=== PATIENT | male | born 1945 | race Caucasian/White ===

== ENCOUNTER → 2021-11-18 14:59 | Outpatient (BNVA) | payer MEDICARE, MEDICAID, SELFPAY | PROVIDERS: PCP Internal Medicine; Visit Provider Psychiatry & Neurology Neurology | DX: G47.10 Hypersomnia, unspecified (principal); R29.818 Other symptoms and signs involving the nervous system; I65.1 Occlusion and stenosis of basilar artery; Z79.01 Long term (current) use of anticoagulants; Z79.02 Long term (current) use of antithrombotics/antiplatelets | CPT/HCPCS: 99212 ==

== ENCOUNTER → 2022-11-17 15:16 | Outpatient (BNVA) | payer MEDICARE, MEDICAID, SELFPAY | PROVIDERS: PCP Internal Medicine; Visit Provider Psychiatry & Neurology Neurology | DX: G47.10 Hypersomnia, unspecified (principal); R29.818 Other symptoms and signs involving the nervous system; I48.91 Unspecified atrial fibrillation; E11.40 Type 2 diabetes mellitus with diabetic neuropathy, unspecified; Z79.01 Long term (current) use of anticoagulants | CPT/HCPCS: 99212 ==

== ENCOUNTER 2024-07-23 11:32 | Outpatient (AMB) | payer MEDICARE, MEDICAID, SELFPAY ==
--- NOTE | 2024-07-23 11:39 | A.OFFVIS_ITS ---
Vital Signs 07/23/24 11:41 Height 5 ft 9 in Weight 226 lb BMI 33.4 BP 132/68 Blood Pressure Location Rt brachial Position Sitting Pulse 55 Pulse Source Pulse Oximeter Pulse Oximetry (%) 97 Oxygen Delivery Method Room Air Intake Visit Reasons: Follow Up Intake Note: Patient presents for follow up hypersomnia Allergies aspirin Allergy (Mild, Verified 07/23/24 11:42) Hives codeine Allergy (Mild, Verified 07/23/24 11:42) Rash morphine Allergy (Mild, Verified 07/23/24 11:42) Rash oxycodone Allergy (Mild, Verified 07/23/24 11:42) Rash HPI Comments Details: 78y/o male comes for neurological eval . On 07/11/2024 he had a fall and was taken to [facility] . He was in a wheelchair van and the chair fell backwards . Patient struck his head . No LOC CT head showed 10X9 mm focal subarachnoid hemorrhage in the boby sylvian fissure and trace SAH in inf frontal lobe Plavix and Eliquis was stopped - for 4 weeks No new neurological concerns Previous history-He presented ER on 02/2021 with right facial droop and slurred speech after a nap at his senior care. patient has h/o diabetes and in ER found to be hypoglycemic. As per notes patient did not eat that day due to fatigue but had his diabetic medications.His Blood glucose was 59 adn BP 185/78 The speech and facial droop was transient and not seen during the ER physicians exam . he had teleneuro consult at that time and was concluded that it was related to hypoglycemia. 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 [facility] Medical History (Updated 07/23/24 @ 12:13 by Ivon Craig MD) SAH (subarachnoid hemorrhage) Arthritis Systolic dysfunction Diabetic neuropathy Hyperlipidemia HTN (hypertension) Diabetes Depression with suicidal ideation Carpal tunnel syndrome Atrial fibrillation Cataract Cataract Surgical History Hx of colonoscopy History of ankle surgery Hx of hernia repair Hx of hernia repair Hx of hernia repair Hx of knee surgery History of knee replacement Social History Household Members: Other Alcohol intake: never Patient Tobacco Use Status: Never used Tobacco Physical Exam Vital Signs: Last Vital Signs Pulse 55 07/23/24 11:41 BP 132/68 07/23/24 11:41 Pulse Ox 97 07/23/24 11:41 Oxygen Delivery Method Room Air 07/23/24 11:41 BMI result Body Mass Index 33.4 Const General: cooperative, healthy appearing and comfortable Nutritional Appearance: obese Orientation/consciousness: oriented to person and oriented to place Eyes Pupils: Equal, round and reactive pupils present Neuro General: oriented to person, oriented to place, moves all extremities and no focal motor deficits Cranial nerves: Yes Equal, round and reactive pupils present, Yes Bilaterally intact EOM present, Yes Normal facial strength present and Yes Midline tongue present Coordination: [id number] test normal Assessment & Plan Assessment & Plan (1) SAH (subarachnoid hemorrhage): Comment: fall on 07/11/2024 - Plavix and Eliquis on hold for 4 weeks Code(s): I60.9 - Nontraumatic subarachnoid hemorrhage, unspecified Category: Medical (2) Transient neurologic deficit: Comment: Likely related to hypoglycemia in Feb 2021 . Code(s): R29.818 - Other symptoms and signs involving the nervous system Category: Medical Plan Hold Eliquis and Plavix until repeat CT in 2 weeks I will schedule for a repeat CT on 08/04 F/u with cardiology No evidence of tardive dyskinesia F/u as needed Orders: Orders CT head/brain wo IV con 2 Weeks I60.9 - Nontraumatic subarachnoid hemorrhage, unspecified Coding Level of Care Code Est Pt Level 4 (34992) Complex EM visit Add On G2211 Diagnoses SAH (subarachnoid hemorrhage) I60.9 Transient neurologic deficit R29.818
[2024-07-23 11:41] VITALS: BP 132/68; PULSE 55; O2SAT 97; BMI 33.4
--- OUTSIDE RECORDS SUMMARY | 2024-07-23 13:44 | XMS_ITS | Clinical Summary ---
Author Organization [facility] Address [address] [place] [address] Care Team Providers Care Dispensing Optician Apprentice Name Role Phone Petey Alicea DO Primary Care Provider [phone] Allergies Active Allergy Reactions Criticality Noted Date Comments Aspirin 04/09/2021 Codeine 04/09/2021 Morphine 04/09/2021 Oxycodone-Acetaminophen 04/09/2021 Penicillins 04/09/2021 Tetracycline 04/09/2021 Medications Medication Sig Dispensed Refills Start Date End Date Status Acetaminophen ([facility] Acetaminophen) 325 MG CAPS Take 2 capsules by mouth. 0 02/10/2021 Active DULoxetine (CYMBALTA) DR capsule 60 mg Take 1 capsule (60 mg total) by mouth daily. 0 02/10/2021 Active insulin aspart (NovoLOG) injection 100 units/mL Inject under the skin. 0 02/10/2021 Active risperiDONE (RisperDAL) 1 MG tablet Take 3 tablets (3 mg total) by mouth every night at bedtime. 0 02/24/2021 Active amLODIPine (NORVASC) tablet 10 mg 0 10/15/2021 Active gabapentin (NEURONTIN) 400 MG capsule 0 10/16/2021 Active Levemir 100 UNIT/ML injection 0 02/08/2022 Active NovoLOG FLEXPEN 100 UNIT/ML injection 0 01/11/2022 Active B Complex Vitamins (VITAMIN B COMPLEX PO) Take by mouth. 0 Active ferrous sulfate 325 (65 FE) MG tablet Take 1 tablet (325 mg total) by mouth every morning with breakfast. 0 Active Active Problems No known active problems Social History Tobacco Use Types Packs/Day Years Used Date Smoking Tobacco: Former Cigarettes Smokeless Tobacco: Never Tobacco Cessation:Counseling Given: Not Answered Alcohol Use Standard Drinks/Week Comments Not Currently 0 (1 standard drink = 0.6 oz pur e alcohol) Sex and Gender Information Value Date Recorded Sex Assigned at Not on file Gender Identity Not on file Sexual Orientation Not on file Job Start Date Occupation Industry Not on file Not on file Not on file Last Filed Vital Signs Vital Sign Reading Time Taken Comments Blood Pressure 118/53 07/18/2023 2:37 PM EST Pulse 60 07/18/2023 2:37 PM EST Temperature 37.2 ??C (99 ??F) 07/18/2023 2:37 PM EST Respiratory Rate - - Oxygen Saturation 98% 07/18/2023 2:37 PM EST Inhaled Oxygen Concentration - - Weight 116.1 kg (256 lb) 07/13/2022 2:58 PM EST Height 177.8 cm (5' 10 ) 07/13/2022 2:58 PM EST Body Mass Index 36.73 07/13/2022 2:58 PM EST Plan of Treatment Health Maintenance Due Date Last Done Comments Hepatitis C Screening 1945 COVID-19 Vaccine (#1) 05/18/1945 Depression Screening 1956 BMI Counseling 1962 Preventative Health Evaluation 1962 Shingrix-Zoster Vaccine (1 o f 2) 1994 DTap / Tdap / Td (1 - Tdap) 04/13/2005 04/12/2005 Fall Risk Assessment 2009 RSV Adult > 60+ Yrs or (1 - 1-dose 75+ series) 11/17/2019 Pneumococcal Vaccine (3 of 3 - PPSV23 or PCV20) 01/03/2021 01/04/2016, 04/12/2005 Influenza Vaccine (#1) 2024 03/17/2016 Hepatitis B Vaccines Aged Out No long er eligible based on patient's age to complete this topic RSV Ped < 20 months Aged Out No longe r eligible based on patient's age to complete this topic Care Teams Dispensing Optician Apprentice Relationship Specialty Start Date End Date Petey Alicea DO [address] [place] [address] [phone] PCP - General Internal Medicine 06/30/21
--- OUTSIDE RECORDS SUMMARY | 2024-07-23 13:44 | XMS_ITS | Encounter Summary ---
Author Organization [facility] Address [address] [place] [address] Care Team Providers Care Director Of Casework Department Name Role Phone Petey Alicea DO Primary Care Provider [phone] Reason for Visit * Reason Comments Follow-up Right Hand Pain / Nu mbness Encounter Details Date Type Department Care Team (Late st Contact Info) Description 07/06/2024 1:00 PM EST Office Visit Orthopedic Surgery - [place] 250 [address] [facility] [address] [place] [phone] Nima Zamora MD 175 [facility] [address] [place] [address] Cubital tunnel syndrome on left (Primary Dx); Carpal tunnel syndrome of left wrist Social History Tobacco Use Types Packs/Day Years Used Date Smoking Tobacco: Former Cigarettes Smokeless Tobacco: Never Alcohol Use Standard Drinks/Week Comments Not Currently 0 (1 standard drink = 0.6 oz pur e alcohol) Sex and Gender Information Value Date Recorded Sex Assigned at Not on file Legal Sex Male 12:14 PM EST Gender Identity Not on file Sexual Orientation Not on file documented as of this encounter Last Filed Vital Signs Vital Sign Reading Time Taken Comments Blood Pressure - - Pulse - - Temperature - - Respiratory Rate - - Oxygen Saturation - - Inhaled Oxygen Concentration - - Weight 97.5 kg (214 lb 15.2 oz) 07/06/2024 1:12 PM EST Height 175.3 cm (5' 9.02 ) 07/06/2024 1:12 PM ES T Body Mass Index 31.73 07/06/2024 1:12 PM EST documented in this encounter Progress Notes * Nima Zamora MD - 07/06/2024 1:00 PM EST Date: July 06, 2024 Diagnosis: left cubital tunnel and carpal tunnel syndrome Last seen: 05/04/24 HPI: Julián Sibley is a 78 y.o. male [id number] hard of hearing wheel chair ambulator resident of assisted with past medical history of cognitive impairment, CVA, T2DM presenting for followupregarding his left hand numbness and tingling. He is a poor historian, members of the assisted staff assist today. He has difficulty explaining why he is at the doctor's office today, he does endorse that he has hand numbness. He says this is only in his left hand. He denies pain but says that hehas difficulty using that hand. Patient has to be prompted in the history, although he is pleasant and does follow commands. Objective Pleasant alert and follows command when heard, is very hard of hearing, he is oriented only to person and place does not know the year can say that he is in [place], he is a very poor and variable historian. Focused Exam: Left Upper Extremity Skin intact Reports decreased sensation over the hand diffusely Is able to fire EPL FPL FDP and interossei Palpable radial pulse Able to make full composite fist Imaging: Nerve conduction study ordered by PCP Dr. Alicea obtained 05/21/24 reviewed today independentlyand shows evidence of cubital and carpal tunnel syndrome Ulnar nerve conduction velocity across the elbow is 38.4 m/s Median motor onset latency to APB is 5.81 ms, there is no recordable sensory latency Medical Decision Making (base on 2 out of 3 elements): Problems Addressed: Low- 1 stable chronic illness Tests Ordered and/or Reviewed: Moderate-Independent interpretation of a diagnostic testing or treatment (not separately reported): nerve conduction study obtained 05/21/24 Risk Level: Moderate risk: counseling regarding moderate risk procedure Assessment: Julián Sibley presents with left hand numbness and tingling as well as nerve conduction studies that confirm carpal tunnel and cubital tunnel syndrome. Unfortunately I have concerns regarding patient's ability to understand risk and benefits of surgery. He is low demand and has significant medical risks which would make him a poor operative candidate. He is a resident of a assisted and demonstrates cognitive impairment and is alert and oriented only to person and place today. We relied on the member of his assisted today to assist in most of the history. Per her report he does have a healthcare proxy but does not have anyone with a power of guardianship. He still is responsible for his own decision making. We discussed risks and benefits of operative intervention, however patient was not able to clearly voice understanding of these risksand benefits, due to his age diabetic status and cognitive impairment not optimistic that surgical treatment would meaningfully increase his quality of life. We discussed that carpal tunnel release and the patient his age with diabetes may prevent progression of his numbness but is not likely to return normal sensation. He does not appear to be uncomfortable and per the assisted staff only complains of numbness not pain in his hands. We reviewed the risks and benefits of cubital tunnel decompression, unfortunately this procedure requires sedation and may not meaningfully change his numbness in his hands. We discussed that operative treatment for carpal tunnel is much lower risk and can be performed with local anesthesia, however this would require him to be able to hear and follow commands well whichhe has some difficulty with today in clinic. We discussed that if he was having pain we could consider a corticosteroid injection which would belikely to improve his symptoms as well as be predictive of his response to surgery, again this would not likely reverse his numbness. Patient declined a corticosteroid injection today. Plan: Left hand numbness and tingling - Will continue with nonoperative treatment and observation - May return for reevaluation or corticosteroid injection as needed Nima Zamora MD documented in this encounter Plan of Treatment Upcoming Encounters Date Type Department Care Team (Late st Contact Info) Description 07/30/2024 2:40 PM EDT Office Visit Gastroenterology - [place] 175 [facility] [address] [facility] [address] [place] [phone] Demetrio Espinoza PA [address] [facility] [address] [place] [address] 09/20/2024 4:20 PM EDT Office Visit Endocrinology - [address] [phone] Jing Corley PA [address] [place] [address] 10/16/2024 9:30 AM EDT Office Visit Orthopedic Surgery - [place] [address] [phone] Cameron Gannon, JF 175 [facility] [address] [place] [address] 10/25/2024 3:30 PM EDT Office Visit [facility] - [facility] 154 300 [facility] [address] [place] [phone] Baron Johnson MD 300 [facility] [address] [place] [address] documented as of this encounter Visit Diagnoses Diagnosis Cubital tunnel syndrome on left- Primary Carpal tunnel syndrome of left wrist documented in this encounter Care Teams Director Of Casework Department Relationship Specialty Start Date End Date Petey Alicea DO [address] [place] [phone] PCP - General Internal Medicine 07/18/20 documented as of this encounter
--- OUTSIDE RECORDS SUMMARY | 2024-07-23 13:44 | XMS_ITS | Encounter Summary ---
Author Organization [facility] Address [address] [place] [address] Care Team Providers Care Forestry Contractor Name Role Phone Petey Alicea Primary Care Provider [phone] Encounter Details Date Type Department Care Team (Late Contact Info) Description 05/11/2024 Lab Requisition [facility] - Main Lab 299 [facility] [place] [address] Maxx Aragon PA [address] [facility] [address] [place] [phone] Benign essential microscopic hematuria Social History Tobacco Use Types Packs/Day Years [...] on file documented as of this encounter Plan of Treatment Upcoming Encounters Date Type Department Care Team (Late Contact Info) Description 07/30/2024 2:40 PM EDT Office Visit Gastroenterology - [place] 175 [facility] 175 [facility] [address] [place] [address] Demetrio Espinoza PA 175 [facility] [address] [place], [place] [phone] 09/20/2024 4:20 PM EDT Office Visit Endocrinology [address] [phone] Jing Corley PA [address] [place] [address] 10/16/2024 9:30 AM EDT Office Visit Orthopedic Surgery - [place] [address] [facility] [address] [place] [phone] Cameron Gannon DPM [address] [facility] [address] [place] [address] 10/25/2024 3:30 PM EDT [facility] - [facility] [address] 300 [facility] 154 [place] [phone] Baron Johnson MD 300 [facility] [address] [place] [address] documented as of this encounter Procedures Procedure Name Priority Date/Time Associated Diagnosis Comments AP OUTSIDE CONSULT Routine 05/04/2024 12 :00 AM EST Benign essential microscopic hematuria documented in this encounter Results * Anatomic pathology outside consult (05/04/2024 12:00 AM EST) Final Diagnosis Urine, Voided ([id number]): Negative for high grade urothelial carcinoma. 05/28/2024 9:02 AM [facility] Clinical Information [id number] Cytology w/Reflex UroVysion (AUC/SHGUC) 05/28/2024 9:02 AM [facility] Gross Description A. Urine, Voided, : [id number] Received 1 TP (CYTO) with Reflex Fish if Atypical/Susp 05/28/2024 9:02 AM [facility] Disclaimer Unless otherwise specified, all tissue is 10% NB formalin fixed and paraffin embedded. Technical pathology services provided by [facility] at [address], [place] [address] (CLIA #[id number]/S tennille Demarco MD, Manager Mental Health) 05/28/2024 9:02 AM EST [facility] Tissue Urine specimen from urethra / Unknown 05/04/2024 05/11/2024 10:04 AM EST us [facility] PATHOLOGY ORDERAB LES Final Result [facility] [address] [place] [address], documented in this encounter Visit Diagnoses Diagnosis Benign essential microscopic hematuria documented in this encounter Care Teams Forestry Contractor Relationship Specialty Start Date End Date Petey Alicea DO [address] [place] [phone] PCP - General Internal Medicine 07/18/20 documented as of this encounter
--- OUTSIDE RECORDS SUMMARY | 2024-07-23 13:44 | XMS_ITS | Encounter Summary ---
Author Organization [facility] Address [address] [place] [address] Care Team Providers Care Roller Painter Name Role Phone Petey Alicea DO Primary Care Provider [phone] Reason for Visit * Reason Comments Follow-up Diabetic Neuropathy Encounter Details Date Type Department Care Team ([facility] st Contact Info) Description 07/16/2024 1:45 PM EST Office Visit Orthopedic Surgery - [place] [id number] [phone] Cameron Gannon DPM [address] [address] Controlled type 2 diabetes with neuropathy (CMS/HCC) (Primary Dx); PVD (peripheral vascular disease) (CMS/HCC); Arthritis of both feet; Hammertoes of both feet; Dermatophytosis, nail Social History Tobacco Use Types Packs/Day Years [...] on file documented as of this encounter Progress Notes * Cameron Gannon DPM - 07/16/2024 1:45 PM EST Referring MD: leesa Last PCP visit: 06/22/2024 IDENTIFIER: @TITLE@ Toñito is a 78 y.o. year old male who presents for consultation. CC: Bilateral foot pain HPI: 78-year-old male with diabetes returns to office for bilateral foot pain. Patient notes that he is nails continue be thickened and misshapened causing pain close to shoes. Patient is recent sugars 7.8%. Patient notes he gets some tingling numbness within his feet from time to time. Patient is wheelchair- bound. Patient notes he recently had a fall but notes he has had no wounds or clinical signs of infection around the lower extremities. ROS: GENERAL: Pt denies nausea, fever, vomiting, chills, or shortness of breath. Pt in NAD. CARDIOLOGY: pt denies chest pain, palpitations LUNGS: pt denies shortness of breath MUSCULOSKELETAL: See HPI, otherwise no joint pain or swelling, back pain, or muscle pain. SKIN: see HPI, otherwise no lesions, rash or itching NEURO: No persistent headache, weakness or numbness The remainder of the review of systems is noncontributory PAST MEDICAL HISTORY: Patient Active Problem List Diagnosis Anemia Atrial fibrillation ([facility]) Bipolar 1 disorder ([facility]) Chest pain COPD (chronic obstructive pulmonary disease) ([facility]) CVA (cerebral vascular accident) ([facility]) Dementia ([facility]) Depression Diabetes mellitus, type 2 ([facility]) Diabetic peripheral neuropathy ([facility]) Hyperlipidemia Hypertension Moderate left ventricular systolic dysfunction Suicidal ideation Type 2 diabetes mellitus with hyperglycemia, with long-term current use of insulin ([facility]) SOCIAL HISTORY: Social History Tobacco Use Smoking status: Former Current packs/day: 0.50 Types: Cigarettes Smokeless tobacco: Never Substance Use Topics Alcohol use: Not Currently ACTIVE MEDICATIONS: No outpatient medications have been marked as taking for the 07/16/24 encounter (Office Visit) with Cameron Gannon DPM. ALLERGIES: @ALL@ PHYSICAL EXAM: There were no vitals taken for this visit. PODIATRIC EXAMINATION: GENERAL: Patient appears well nourished, with NAD. VASCULAR: Dorsalis pedis pulses are 1/4 bilaterally and Posterior tibial pulses are 0/4 bilaterally. Capillary filling time within normal limits the digits. No pallor on elevation or rubor on dependency. Positive hair growth. No varicosities. Denies rest pain or claudication pain. NEUROLOGICAL: Sharp/dull sensation intact, protective sensation diminished on [place]. Multiple peripheral neuropathies bilaterally ORTHOPEDIC: Good muscle strength 5/5 of all flexors and extensors. Dorsi flexion of ankle ,10 degrees, plantar flexion WNL. No muscle atrophy. No pain on palpation about the ankle joint. The foot on the ankle is malpositioned secondary to ambulatory activity in the immediate postoperative period. Multiple arthritic changes in the midtarsal joint. Multiple rigid contractures digits 2 through 5 DERMATOLOGICAL:.No open lesions or clinical signs of infection. Nails are elongated dystrophic discolored x 10 with subungual debris. Scar tissue over the medial aspect of the right ankle without redness or swelling. BIOMECHANICS: Biomechanics of right lower extremity are limited IMPRESSION: 1. Controlled type 2 diabetes with neuropathy ([facility]) 2. PVD (peripheral vascular disease) ([facility]) 3. Arthritis of both feet 4. Hammertoes of both feet 5. Dermatophytosis, nail PLAN: Pt was seen and examined, history reviewed. Patient educated on the importance of keeping tight glucose control in order to limit chance for ulceration infection in the future Patient was educated on the importance of keeping a wide shoe and supportive insole in order to limit pressure on the bony prominence associated with his arthritic changes Patient was educated on the importance of keeping his leg in a proper position when laying in bed in order to decrease pressure to the lateral compartment of the right leg which had a previous wound. Nail debridement performed to nails 1-5 bilateral as nails were described to be causing pain and difficulty for walking while in shoegear at their previous length. They were debrided in thickness andlength, with no incident. Clinical evidence of mycosis is documented which required active treatment. Patient expressed immediate relief. Patient is to RTC in 9 weeks Cameron Gannon DPM documented in this encounter Plan of Treatment Upcoming Encounters Date Type Department Care Team (Late st Contact Info) Description 07/30/2024 2:40 PM EDT Office Visit Gastroenterology - [place] [address] [facility] [address] [place] [phone] Demetrio Espinoza PA [address] [place] [address] 09/20/2024 4:20 PM EDT Office Visit Endocrinology - [place] [address] [place] [phone] Jing Corley PA [address] [place] [address] 10/16/2024 9:30 AM EDT Office Visit Orthopedic Surgery - [place] [address] [phone] Cameron Gannon DPM 175 [facility] 250 [place] [address] 10/25/2024 3:30 PM EDT Office Visit [facility] - [facility] 154 [address] [facility] 154 [place] [phone] Baron Johnson MD 300 [facility] 154 [place] [address] documented as of this encounter Visit Diagnoses Diagnosis Controlled type 2 diabetes with neuropathy ([facility])- Primary Type II or unspecified type diabetes mellitus with neurological manifestations, not stated as uncontrolled PVD (peripheral vascular disease) ([facility]) Unspecified peripheral vascular disease Arthritis of both feet Hammertoes of both feet Dermatophytosis, nail Dermatophytosis of nail documented in this encounter Care Teams Roller Painter Relationship Specialty Start Date End Date Petey Alicea DO [address] [place] [phone] PCP - General Internal Medicine 07/18/20 documented as of this encounter
--- OUTSIDE RECORDS SUMMARY | 2024-07-23 13:44 | XMS_ITS | Encounter Summary ---
Author Organization [facility] Address [address] [place] [address] Care Team Providers Care Neurological Surgeon Name Role Phone Petey Alicea DO Primary Care Provider [phone] Reason for Visit * Reason Onset Date Comments Medication Problem 07/18/2024 Encounter Details Date Type Department Care Team ([facility] st Contact Info) Description 07/18/2024 Telephone Endocrinology - [place] [address] [place] [address] Jing Corley PA [address] [place], [place] Medication Problem Social History Tobacco Use Types Packs/Day Years [...] on file documented as of this encounter Ordered Prescriptions Prescription Sig Dispense Quantity Refills Last Filled Start Date End Date insulin glargine-yfgn (Semglee,insulin glarg-yfgn,Pen) 100 unit/mL (3 mL) injection Use 45 units once daily in the morning 45 mL 1 07/19/2024 documented in this encounter Progress Notes * Ruth Trimble MA - 07/20/2024 3:23 PM EST [phone] (home) Spoke to Kelin (EC - child welfare social worker) informed and will be faxing a DC Basalglar order for provider to sign. * Doug Martinez - 07/19/2024 4:17 PM EST Patient returned call to Danyell * Danyell Stevens RN - 07/19/2024 3:52 PM EST Called patient, no answer, VM left * JUAN Stokes - 07/19/2024 3:28 PM EST Alternative ordered (Semglee). Dose remains the same. Please inform patient * Sandra Padilla - 07/18/2024 3:08 PM EST Medication Problem: What is the name of the medication patient is having a problem with?: Basaglar What is the problem?: Patient's PCP's office is calling, they received notice from patients insurance they will no longer cover Basaglar , unless he tries and fails two below alternatives: Insulin degludec 100 unit/ML vial or pen, or 200 unit/ML, Insulin glargine YFGN 100 unit/ML pen Who is calling about the problem? : Ingrid from Dr. Alicea's office Is this a NEW medication?: no Who prescribed this medication for the patient? Originally Dr. Alicea, taken over by Jing Corley once establishing care with endo Who is patients PCP?: Petey Alicea, Payor: MEDICARE / Plan: MEDICARE PART A & B / Product Type: Medicare / documented in this encounter Plan of Treatment Upcoming Encounters Date Type Department Care Team (Late st Contact Info) Description 07/30/2024 2:40 PM EDT Office Visit Gastroenterology - [place] [address] 175 [facility] [address] [place] [phone] Demetrio Espinoza PA 175 [facility] [address] [place] [address] 09/20/2024 4:20 PM EDT Office Visit Endocrinology - [place] [address] [place] [address] Jing Corley PA [address] [place] [address] 10/16/2024 9:30 AM EDT Office Visit Orthopedic Surgery - [place] 250 175 [facility] 250 [place] [phone] Cameron Gannon DPM 175 [facility] [address] [place] [address] 10/25/2024 3:30 PM EDT Office Visit [facility] - [facility] 154 300 [facility] 154 [place] [phone] Baron Johnson MD 300 [facility] [address] [place] [address] documented as of this encounter Visit Diagnoses Not on filedocumented in this encounter Discontinued Medications Medication Sig Discontinue Reason Start Date End Da te insulin glargine,hum.rec.anlog (Basaglar KwikPen U-100 Insulin) 100 unit/mL (3 mL) injection pen Use 45 units every morning 07/05/2024 07/19/2024 documented as of this encounter Care Teams Neurological Surgeon Relationship Specialty Start Date End Date Petey Alicea DO [address] [place] [phone] PCP - General Internal Medicine 07/18/20 documented as of this encounter
--- OUTSIDE RECORDS SUMMARY | 2024-07-23 13:44 | XMS_ITS | Clinical Summary ---
Author Organization [facility] [address] [place] [address] Address [address] [place] [address] Phone Care Team Providers Care Endoscopy Technician Name Role Phone Petey Alicea Primary Care Provider [phone] Allergies Active Allergy Reactions Criticality Noted Date Comments Aspirin 04/09/2021 Codeine 04/09/2021 Morphine 04/09/2021 Oxycodone-Acetaminophen 04/09/2021 Percocet Medications acetaminophen (TYLENOL) 325 mg tablet Take 2 Tablets by mouth every 6 hours as needed for Pain (mild to moderate pain) for up to 10 days. 12/03/19 23 Active amLODIPine (NORVASC) 10 mg tablet Take 1 Tablet by mouth daily. Active ascorbic acid, vitamin C, 500 mg capsule Take by mouth at bedtime. Active atorvastatin (LIPITOR) 40 mg tablet Take 1 tablet by mouth at bedtime. Active clopidogreL (PLAVIX) 75 mg tablet Take 75 mg by mouth daily. Active DULoxetine (CYMBALTA) [address] capsule Take 1 capsule by mouth daily. Active apixaban (Eliquis) 5 mg tablet TAKE 1 TABLET BY MOUTH TWICE DAILY. 02/16/20 24 Active ferrous sulfate 325 mg (65 mg elemental iron) tablet Take 1 Tablet by mouth daily. Active gabapentin (NEURONTIN) 100 mg capsule Take 1 Capsule by mouth at bedtime. Active ketorolac (ACULAR) 0.5 % ophthalmic solution 1 Drop 4 times daily. Active loperamide (IMODIUM) 2 mg capsule Take 1 Capsule by mouth 2 times daily as needed for Diarrhea. 12/16/19 24 Active methylcellulos e, laxative, (CitruceL) 500 mg tablet Take 1 Tablet by mouth daily. 03/08/20 24 Active risperiDONE (RisperDAL) 1 mg tablet Take 3 Tablets by mouth at bedtime. Active traZODone (DESYREL) 150 mg tablet Take 1 tablet by mouth at bedtime. Active blood-glucose sensor (FreeStyle Yamila 3 Sensor) device Box = Kit = EA, use one sensor every 14 days. 2 each 3 05/11/20 24 Active loperamide (Imodium A-D) 2 mg tablet Take 1 tablet (2 mg total) by mouth 4 (four) times a day if needed for diarrhea. 60 tablet 11 05/14/20 24 Active insulin aspart (NovoLOG FlexPen) 100 unit/mL (3 mL) injection pen Inject 3-12 Units into the skin 3 times daily. Use three times a day before meals: <100: 0 units, 101-150: 3 units, 151-200: 4 units, 201-250: 5 units, 251-300: 7 units, 301-350: 9 units, 351-400: 10 units, >400: 11 units 06/22/19 25 Active OneTouch Ultra Test test strip To check sugars three times a day E11.9 300 each 3 06/28/19 25 Active blood-glucose meter (OneTouch Ultra2 Meter) misc To check sugars three times a day E11.9 1 kit 06/28/19 25 Active lancets 30 gauge misc To check sugars three times a day E11.9 300 each 3 06/29/19 25 Active carvediloL (COREG) 12.5 mg tablet TAKE 1 TABLET BY MOUTH TWICE DAILY WITH MEALS. 56 tablet 6 07/05/19 25 Active insulin glargine-yfgn (Semglee,insul in glarg-yfgn,Pen ) 100 unit/mL (3 mL) injection Use 45 units once daily in the morning 45 mL 1 07/19/19 25 Active carvediloL (COREG) 12.5 mg tablet TAKE 1 TABLET BY MOUTH TWICE DAILY WITH MEALS. 12/15/19 24 025 Discontinued lancets 30 gauge misc To check sugars three times a day E11.9 300 each 3 06/28/19 25 025 Discontinued(Re order) insulin glargine,hum.r ec.anlog (Basaglar KwikPen U-100 Insulin) 100 unit/mL (3 mL) injection pen Use 45 units every morning 07/05/19 25 025 Discontinued Active Problems Problem Noted Date Diagnosed Date Type 2 diabetes mellitus wit h hyperglycemia, with long-term current use of insulin 03/30/2024 Anemia 06/28/2022 Bipolar 1 disorder 06/28/2022 COPD (chronic obstructive pulmonary disease) 10/2022 CVA (cerebral vascular accident) 06/28/2022 Dementia 06/28/2022 Overview (03/30/2024): In snf Depression 06/28/2022 Suicidal ideation 06/28/2022 Chest pain 06/22/2021 Overview (03/30/2024): Last Assessment & Plan: We will update nuclear stress testing as previously recommended by Dr. Johnson and in light of the patient now having exertional symptoms. Instructed to call 911 or go to the emergency room should the patient begin to experience chest pain or pressure lasting greater than 10 minutes does not resolve with rest. Atrial fibrillation 04/09/2021 Overview (03/30/2024): Last Assessment & Plan: He denies perception of recurrence of arrhythmia. He presents in sinus rhythm today. Patient is anticoagulated on full dose Eliquis as his weight is greater than 80 kg and his age is less than 80. Educated on risks and benefits of continuing with anticoagulation including increased risk for hemorrhage and decreased risk for stroke. Encouraged to seek emergent medical attention should the patient sustain a fall involving a head strike. The patient understands these risks and agrees to continue. Diabetes mellitus, type 2 04/09/2021 Diabetic peripheral neuropathy 04/09/2021 Hyperlipidemia 04/09/2021 Overview (03/30/2024): Last Assessment & Plan: Continue current statin therapy. He will be mindful of his dietary fat intake. Last fasting lipid profile with an LDL of less than 70. Hypertension 04/09/2021 Overview (03/30/2024): Last Assessment & Plan: Well-controlled during today's exam with a reading of 121/60. I have made no changes to his medications. Educated on the importance of diet lifestyle to help further assist in reducing blood pressure. The patient was encouraged to follow low-salt low-fat diet, make purposeful strides towards weight loss, and engage in routine aerobic exercise as tolerated. Moderate left ventricular systolic dysfunction 1 06/09/2020 Overview (03/30/2024): Last Assessment & Plan: Euvolemic upon exam. We will update surveillance echocardiogram in light of worsening fatigue and shortness of breath as reported by snf director. Encounters Date Type Department Care Team Description 07/18/[address] [phone] Jing Corley PA Medication Problem 07/16/2024 1:45 PM EST Office Visit [facility] [address] [phone] Cameron Gannon DPM Controlled type 2 diabetes with neuropathy (CMS/HCC) (Primary Dx); PVD (peripheral vascular disease) (CMS/HCC); Arthritis of both feet; Hammertoes of both feet; Dermatophytosis, nail 07/06/2024 1:00 PM EST Office Visit Orthopedic [facility] [address] [phone] Nima Zamora MD Cubital tunnel syndrome on left (Primary Dx); Carpal tunnel syndrome of left wrist 06/22/2024 4:00 PM EST Office Visit [address] [phone] Jing Corley PA Type 2 diabetes mellitus with hyperglycemia, with long-term current use of insulin (CMS/HCC) (Primary Dx) 05/21/2024 1:30 PM EST - 05/21/2024 11:59 PM EST Hospital Encounter [facility] [address] [place] [phone] Paresthesia of skin Discharge Disposition: Home or Self Care 05/21/2024 Telephone Orthopedic [facility] [address] [phone] Nima Zamora MD 05/14/2024 11:00 AM EST Office Visit Gastroenterology [facility] 175 [facility] 175 [facility] [address] [place] [phone] Demetrio Espinoza PA Passage of loose stools (Primary Dx); Fecal urgency; History of CVA (cerebrovascular accident); Diabetes 1.5, managed as type 2 ([facility]) 05/11/2024 Lab Requisition [facility] - Main Lab 299 [facility] [place] [phone] Maxx Aragon PA Benign essential microscopic hematuria 05/09/2024 Telephone Endocrinology - [address] [phone] Jing Corley PA provider call back 05/04/2024 9:30 AM EST Office Visit Orthopedic [place] [phone] [phone] Nima Zamora MD Numbness and tingling in left hand (Primary Dx) 05/03/2024 2:00 PM EST Office Visit Orthopedic Surgery [place] [phone] [phone] Cameron Gannon DPM Controlled type 2 diabetes with neuropathy ([facility]) (Primary Dx); Hammertoes of both feet; Pressure injury of right ankle, unstageable ([facility]); Arthritis of both feet; PVD (peripheral vascular disease) ([facility]); Dermatophytosis, nail 04/27/2024 10:40 AM EST Office Visit Endocrinology [address] [phone] Jing Corley PA Type 2 diabetes mellitus with hyperglycemia, with long-term current use of insulin ([facility]) (Primary Dx) from Last 3 Months Surgical History Surgery Date Site/Laterality Comments OTHER SURGICAL HISTORY 03/18/2016 PROCEDURE: HISTORY OTHER; COMMENT: incision AND drainage of left foot abcess CATARACT EXTRACTION PROCEDURE: HISTORICAL CATARACT REMOVAL Medical History Medical History Date Comments Carpal tunnel syndrome DX:Carpal tunnel syndrome Depression with suicidal ideation DX:Depression with suicidal ideation Incidental pulmonary nodule DX:I ncidental pulmonary nodule Left pontine stroke (CMS/HCC) DX :Left pontine stroke (HCC) Osteoarthritis DX:Osteoarthriti s CVA (cerebral vascular accident) (CMS/HCC) DX:CVA (cerebral vascular accident) (HCC) Passage of loose stools DX:Passa ge of loose stools Fecal smearing DX:Fecal smearin g Family History Medical History Relation Name Comments Other: Heart disease Mother Other: Heart disease Other Grandmother Stroke Other Grandmother Relation Name Status Comments Mother Other Grandmother Social History Tobacco Use Types Packs/Day Years Used Date Smoking Tobacco: Former Cigarettes Smokeless Tobacco: Never Alcohol Use Standard Drinks/Week Comments Not Currently 0 (1 standard drink = 0.6 oz pur e alcohol) Sex and Gender Information Value Date Recorded Sex Assigned at Not on file Legal Sex Male 12:14 PM EST Gender Identity Not on file Sexual Orientation Not on file Obstetrics History Last Filed Vital Signs Vital Sign Reading Time Taken Comments Blood Pressure 137/78 06/22/2024 4:22 PM EST Pulse 78 06/22/2024 4:22 PM EST Temperature 36.5 ??C (97.7 ??F) 06/22/2024 4:22 PM ES T Respiratory Rate 16 04/27/2024 10:3 9 AM EST Oxygen Saturation 97% 06/22/2024 4:22 PM EST Inhaled Oxygen Concentration - - Weight 97.5 kg (214 lb 15.2 oz) 07/06/2024 1:12 PM EST Height 175.3 cm (5' 9.02 ) 07/06/2024 1:12 PM ES T Body Mass Index 31.73 07/06/2024 1:12 PM EST Plan of Treatment Upcoming Encounters Date Type Department Care Team (Late st Contact Info) Description 07/30/2024 2:40 PM EDT Office Visit Gastroenterology - [place] [address] [facility] [address] [place] [phone] Demetrio Espinoza PA [address] [place] [address] [place] [address] 09/20/2024 4:20 PM EDT Office Visit Endocrinology - [place] [address] [place] [phone] Jing Corley PA [address] [place] [address] 10/16/2024 9:30 AM EDT Office Visit Orthopedic Surgery - [place] [address] [phone] Cameron Gannon DPM 175 [facility] 250 [place] [address] 10/25/2024 3:30 PM EDT Office Visit [facility] 154 300 [facility] 154 [place] [phone] Baron Johnson MD 300 [facility] [address] [place] [address] Health Maintenance Due Date Last Done Comments Diabetes: Annual Foot Exam 1955 Diabetes: Annual Retina Eye Exam 1955 Zoster Vaccines (1 of 2) 1994 DTaP,Tdap,and Td Vaccines (2 - Td or Tdap) 04/12/2015 04/12/2005 RSV Immunization Patients 60+ Years Old (1 - 1-dose 75+ series) 11/17/2019 Pneumococcal Vaccine: 50+ Years (3 of 3 - PCV20 or PCV21) 01/03/2021 01/04/2016, 04/12/2005 Depression Screening 04/30/2022 Falls Risk Assessment 04/30/2022 Hepatitis C Screening 04/30/2022 Medicare Annual Wellness Visit 04/30/2022 Social Influencers of Health Screening 04/30/2022 Diabetes: Annual Urine Albumin-Creatinine Ratio (uACR) 05/08/2022 Diabetes: Blood Sugar Control Test (HGBA1C) 12/24/2024 06/26/2024, 06/11/2024 Diabetes: Annual GFR (Glomerular Filtration Rate) 06/11/2025 06/11/2024 Hypertension/CHF/CAD Annual BMP Blood Test 06/11/2025 06/11/2024 Cholesterol Screening (Lipid Panel) 06/26/2029 06/26/2024 Influenza Vaccine Completed 02/24/2024, , 02/02/2022, Additional history exists COVID-19 Vaccine Completed 03/23/2024, 04/2022, 03/09/2021 HIB Vaccines Aged Out No longer eligi ble based on patient's age to complete this topic HPV Vaccines Aged Out No longer eligi ble based on patient's age to complete this topic Hepatitis A Vaccines Aged Out No long er eligible based on patient's age to complete this topic Hepatitis B Vaccines Aged Out No long er eligible based on patient's age to complete this topic IPV Vaccines Aged Out No longer eligi ble based on patient's age to complete this topic MMR Vaccines Aged Out No longer eligi ble based on patient's age to complete this topic Meningococcal ACWY Vaccine Aged Out N o longer eligible based on patient's age to complete this topic Meningococcal B Vacine Aged Out No lo nger eligible based on patient's age to complete this topic RSV Immunization Patients Under 20 months Aged Out No longer eligible based on patient's age to complete this topic Varicella Vaccines Aged Out No longer eligible based on patient's age to complete this topic Procedures Procedure Name Priority Date/Time Associated Diagnosis Comments THYROID STIMULATING HORMONE Routine 06/26/2024 10:48 AM EST Laboratory tests ordered as part of a complete physical exam (CPE) CVA (cerebral vascular accident) (CMS/[facility]) DM (diabetes mellitus) (CMS/[facility]) HLD (hyperlipidemia) Attn-defct hyperactivity disorder, predom hyperactive type PROSTATE SPECIFIC ANTIGEN SCREEN Routine 06/26/2024 10:48 AM EST Laboratory tests ordered as part of a complete physical exam (CPE) CVA (cerebral vascular accident) (CMS/HCC) DM (diabetes mellitus) (CMS/HCC) HLD (hyperlipidemia) Attn-defct hyperactivity disorder, predom hyperactive type Encounter for screening for malignant neoplasm of prostate CREATINE KINASE Routine 06/26/2024 10:48 AM EST Laboratory tests ordered as part of a complete physical exam (CPE) CVA (cerebral vascular accident) (CMS/HCC) DM (diabetes mellitus) (CMS/HCC) HLD (hyperlipidemia) Attn-defct hyperactivity disorder, predom hyperactive type LIPID PANEL WITH REFLEX TO DIRECT LDL Routine 06/26/2024 10:48 AM EST Laboratory tests ordered as part of a complete physical exam (CPE) CVA (cerebral vascular accident) ([facility]) DM (diabetes mellitus) ([facility]) HLD (hyperlipidemia) Attn-defct hyperactivity disorder, predom hyperactive type HEMOGLOBIN A1C Routine 06/26/2024 10:48 AM EST Type 2 diabetes mellitus with hyperglycemia, with long-term current use of insulin ([facility]) POC GLUCOSE Routine 06/22/2024 4:25 PM EST Type 2 diabetes mellitus with hyperglycemia, with long-term current use of insulin ([facility]) HEMOGLOBIN A1C Routine 06/11/2024 2:41 PM EST Hospital discharge follow-up DM (diabetes mellitus) ([facility]) BASIC METABOLIC PANEL Routine 06/11/2024 2:41 PM EST Hospital discharge follow-up DM (diabetes mellitus) ([facility]) EMG 1 LIMB Routine 05/21/2024 2:16 PM EST Paresthesia of skin XR HAND 3+ VIEWS LEFT Routine 05/04/2024 10:33 AM EST Pain AP OUTSIDE CONSULT Routine 05/04/2024 12 :00 AM EST Benign essential microscopic hematuria from Last 3 Months Results * Prostate specific antigen screen (06/26/2024 10:48 AM EST) PSA 0.91 0.00 - 4.00 ng/mL LAB CHEMISTRY METHOD 06/26/2024 4:44 PM EST [facility] Blood Venous blood specimen / Unknown Venipuncture / Unknown 06/26/2024 10:48 AM EST 06/26/2024 10:48 AM EST Narrative [facility] - 06/26/2024 4:44 PM EST The Siemens Advia Centaur Chemiluminescent Immunoassay is used. Results obtained with different assay methods or kits cannot be used interchangeably. Results cannot be interpreted as absolute evidence of the presence or absence of malignant disease. Christopher Dubose LAB BLOOD ORDERABLES Final Resul t Performing Organization Address City/[facility]/ZIP Co de Phone Number [facility] [address] [place] [address], [place] [phone] * (ABNORMAL) Lipid panel with reflex to direct LDL (06/26/2024 10:48 AM EST) Cholesterol 97 0 - 200 mg/dL LAB CHEMISTRY METHOD 06/26/2024 4:30 PM EST [facility] Triglycerides 153(H) 0 - 150 mg/dL LAB CHEMISTRY METHOD 06/26/2024 4:30 PM EST [facility] HDL 38(L) >=40 mg/dL LAB CHEMISTRY METHOD 06/26/2024 4:30 PM EST [facility] LDL Calculated 28 0 - 100 mg/dL LAB CHEMISTRY METHOD 06/26/2024 4:30 PM EST [facility] VLDL Cholesterol John 30.6 mg/dL LAB CHEMISTRY METHOD 06/26/2024 4:30 PM EST [facility] Non HDL Chol. (LDL+VLDL) 59 <145 mg/dL LAB CHEMISTRY METHOD 06/26/2024 4:30 PM EST [facility] Chol/HDL Ratio 2.6 0.0 - 4.4 LAB CHEMISTRY METHOD 06/26/2024 4:30 PM [facility] Blood Venous blood specimen / Unknown Venipuncture / Unknown 06/26/2024 10:48 AM EST 06/26/2024 10:48 AM EST Christopheryuliya Dubose LAB BLOOD ORDERABLES Final Resul t [facility] [address] [place] [address], * Thyroid stimulating hormone (06/26/2024 10:48 AM EST) Pathologist [facility] TSH 1.48 0.40 - 4.00 mcIU/mL LAB CHEMISTRY METHOD 06/26/2024 4:39 PM EST [facility] Blood Venous blood specimen / Unknown Venipuncture / Unknown 06/26/2024 10:48 AM EST 06/26/2024 10:48 AM EST Christopher Dubose LAB BLOOD ORDERABLES Final Resul t Performing Organization Address [facility] Co de Phone Number [facility] [address] [place] [address], * (ABNORMAL) Hemoglobin A1c (06/26/2024 10:48 AM EST) Only the most recent of2 resultswithin the time period is included. [facility] Hemoglobin A1C 7.8(H) <6.5 % LAB CHEMISTRY METHOD 06/27/2024 10:37 AM EST [facility] Mean Bld Glu Estim. 177 mg/dL LAB CHEMISTRY METHOD 06/27/2024 10:37 AM EST [facility] Blood Venous blood specimen / Unknown Venipuncture / Unknown 06/26/2024 10:48 AM EST 06/26/2024 10:48 AM EST Jing MARTINEZ LAB BLOOD ORDERABLES Final Resul t [facility] [address] [place] [address], * Creatine kinase (06/26/2024 10:48 AM EST) [facility] Total CK 92 22 - 269 unit/L LAB CHEMISTRY METHOD 06/26/2024 4:30 PM EST [facility] Blood Venous blood specimen / Unknown Venipuncture / Unknown 06/26/2024 10:48 AM EST 06/26/2024 10:48 AM EST us Christopher Sedrick LAB BLOOD ORDERABLES Final Resul t [facility] [address] [place] [address], [place] [phone] * (ABNORMAL) POC glucose manually resulted (06/22/2024 4:25 PM EST) Glucose POC 201 mg/dL Comment:non fasting Blood Capillary blood specimen / Unknown 06/22/2024 4:25 PM EST Jing MARTINEZ POINT OF CARE TEST ENTER/EDIT OR DERABLES Final Result * (ABNORMAL) Basic metabolic panel (06/11/2024 2:41 PM EST) [facility] Sodium 139 133 - 145 mmol/L LAB CHEMISTRY METHOD 06/11/2024 7:50 PM [facility] Potassium 3.9 3.5 - 5.5 mmol/L LAB CHEMISTRY METHOD 06/11/2024 7:50 PM [facility] Chloride 104 96 - 110 mmol/L LAB CHEMISTRY METHOD 06/11/2024 7:50 PM [facility] CO2 30 21 - 32 mmol/L LAB CHEMISTRY METHOD 06/11/2024 7:50 PM [facility] Anion Gap 5 3 - 11 LAB CHEMISTRY METHOD 06/11/2024 7:50 PM [facility] Glucose 180(H) 70 - 100 mg/dL LAB CHEMISTRY METHOD 06/11/2024 7:50 PM [facility] BUN 30(H) 5 - 25 mg/dL LAB CHEMISTRY METHOD 06/11/2024 7:50 PM [facility] Creatinine 1.26 0.70 - 1.30 mg/dL LAB CHEMISTRY METHOD 06/11/2024 7:50 PM EST [facility] eGFR 58(L) >=60 mL/min/1. 73m2 LAB CHEMISTRY METHOD 06/11/2024 7:50 PM EST [facility] Comment:Calculation based on the??Chronic Kidney Disease Epidemiology Collaboration (CKD-EPI) equation refit??without adjustment for race. BUN/Creatinine Ratio 23.8 LAB CHEMISTRY METHOD 06/11/2024 7:50 PM EST [facility] Calcium 9.2 8.5 - 10.5 mg/dL LAB CHEMISTRY METHOD 06/11/2024 7:50 PM EST [facility] Blood Venous blood specimen / Unknown Venipuncture / Unknown 06/11/2024 2:41 PM EST 06/11/2024 2:41 PM EST Christopher Dubose LAB BLOOD ORDERABLES Final Resul t [facility] [address] [place] [address], [place] [phone] * EMG one limb (05/21/2024 2:16 PM EST) Narrative Mercy Gonsalez MD - 05/21/2024 3:35 PM EST See report in chart review Petey Alicea DO NEUROLOGY ORDERABLES Final Re sult * XR Hand 3+ Views Left (05/04/2024 10:33 AM EST) Anatomical Region Laterality Modality Upper Extremities, Hand Left Computed Radiography Narrative 05/04/2024 9:24 PM EST No evidence of fracture or dislocation, there is diffuse osteopenia, there are early degenerative changes at the left thumb CMC joint, there is a well-corticated cyst in the body of the hamate, ulnar neutral variance normal soft tissue shadows. Impression: Osteopenia, early thumb CMC degenerative changes. Nima Zamora MD IMG XR PROCEDURES Final Result * Anatomic pathology outside consult (05/04/2024 12:00 AM EST) Final Diagnosis Urine, Voided ([id number]): Negative for high grade urothelial carcinoma. 05/28/2024 9:02 AM EST [facility] Clinical Information [id number] Cytology w/Reflex UroVysion (AUC/SHGUC) 05/28/2024 9:02 AM EST [facility] Gross Description A. Urine, Voided, : [id number] Received 1 TP (CYTO) with Reflex Fish if Atypical/Susp 05/28/2024 9:02 AM [facility] Disclaimer Unless otherwise specified, all tissue is 10% NB formalin fixed and paraffin embedded. Technical pathology services provided by [facility] at [address], [place] [address] (CLIA #[id number] tennille Demarco MD, Batch Room Technician) 05/28/2024 9:02 AM EST [facility] Tissue Urine specimen from urethra / Unknown 05/04/2024 05/11/2024 10:04 AM EST us Maxx MARTINEZ LAB PATHOLOGY ORDERAB LES Final Result [facility]) [facility] [address] [place] [address], from Last 3 Mon[place] [id number] MEDICARE MEDICAID - [place] Advance Directives Documents on File Type Date Recorded Patient Care Process Manager Expl anation Health Care Decision (hx) 12/28/2022 AD COBB DIRECTIVE Health Care Decision (hx) 12/14/2022 HE ALTH CARE PROXY Health Care Decision (hx) 12/14/2022 HE ALTH CARE PROXY Health Care Decision (hx) 12/14/2022 HE ALTH CARE PROXY Health Care Decision (hx) 12/14/2022 HE ALTH CARE PROXY Health Care Decision (hx) 12/14/2022 HE ALTH CARE PROXY Health Care Decision (hx) 12/14/2022 HE ALTH CARE PROXY Health Care Decision (hx) 12/14/2022 HE ALTH CARE PROXY Health Care Decision (hx) 12/14/2022 HE ALTH CARE PROXY Health Care Decision (hx) 12/14/2022 HE ALTH CARE PROXY Health Care Decision (hx) 12/14/2022 HE ALTH CARE PROXY Health Care Decision (hx) 12/14/2022 HE ALTH CARE PROXY Health Care Decision (hx) 12/14/2022 HE ALTH CARE PROXY Health Care Decision (hx) 12/14/2022 HE ALTH CARE PROXY Health Care Decision (hx) 12/14/2022 HE ALTH CARE PROXY Health Care Decision (hx) 12/14/2022 HE ALTH CARE PROXY Health Care Decision (hx) 12/14/2022 HE ALTH CARE PROXY Health Care Decision (hx) 12/14/2022 HE ALTH CARE PROXY Health Care Decision (hx) 12/14/2022 HE ALTH CARE PROXY Health Care Decision (hx) 12/14/2022 HE ALTH CARE PROXY Health Care Decision (hx) 12/14/2022 HE ALTH CARE PROXY Health Care Decision (hx) 12/05/2022 AD COBB DIRECTIVE Health Care Decision (hx) 03/24/2016 AD COBB DIRECTIVE Health Care Decision (hx) 03/24/2016 AD COBB DIRECTIVE Health Care Decision (hx) 03/24/2016 AD COBB DIRECTIVE Health Care Decision (hx) 03/24/2016 AD COBB DIRECTIVE Health Care Decision (hx) 03/24/2016 AD COBB DIRECTIVE Health Care Decision (hx) 03/24/2016 AD COBB DIRECTIVE Health Care Decision (hx) 03/24/2016 AD COBB DIRECTIVE Health Care Decision (hx) 03/24/2016 AD COBB DIRECTIVE Health Care Decision (hx) 03/24/2016 AD COBB DIRECTIVE Health Care Decision (hx) 03/24/2016 AD COBB DIRECTIVE Health Care Decision (hx) 03/24/2016 AD COBB DIRECTIVE Health Care Decision (hx) 03/24/2016 AD COBB DIRECTIVE Health Care Decision (hx) 03/24/2016 AD COBB DIRECTIVE Health Care Decision (hx) 03/24/2016 AD COBB DIRECTIVE Health Care Decision (hx) 03/24/2016 AD COBB DIRECTIVE Health Care Decision (hx) 03/24/2016 AD COBB DIRECTIVE Health Care Decision (hx) 03/24/2016 AD COBB DIRECTIVE Health Care Decision (hx) 03/24/2016 AD COBB DIRECTIVE Health Care Decision (hx) 03/24/2016 AD COBB DIRECTIVE Health Care Decision (hx) 03/24/2016 AD COBB DIRECTIVE Health Care Decision (hx) 03/24/2016 AD COBB DIRECTIVE Health Care Decision (hx) 03/24/2016 AD COBB DIRECTIVE Health Care Decision (hx) 03/24/2016 AD COBB DIRECTIVE Health Care Decision (hx) 03/24/2016 AD CBOB DIRECTIVE Health Care Decision (hx) 03/24/2016 AD COBB DIRECTIVE Care Teams Endoscopy Technician Relationship Specialty Start Date End Date Petey Alicea DO [address] [place] [phone] PCP - General Internal Medicine 07/18/20
== END 2024-07-23 12:20 | disposition home or self-care (01) ==
PROVIDERS: PCP Internal Medicine; Visit Provider Psychiatry & Neurology Neurology
DX: I60.9 Nontraumatic subarachnoid hemorrhage, unspecified (principal); R29.818 Other symptoms and signs involving the nervous system
CPT/HCPCS: 99214; G2211

== ENCOUNTER → 2024-07-23 11:32 | Outpatient (BNVA) | payer MEDICARE, MEDICAID, SELFPAY | PROVIDERS: PCP Internal Medicine; Visit Provider Psychiatry & Neurology Neurology | DX: I60.9 Nontraumatic subarachnoid hemorrhage, unspecified (principal); R29.818 Other symptoms and signs involving the nervous system | CPT/HCPCS: 99212 ==

== ENCOUNTER 2024-09-03 16:10 | Outpatient (REF) | payer MEDICARE, MEDICAID, SELFPAY ==
--- NOTE | ~2024-09-03 | CT_ITS ---
CLINICAL HISTORY: I60.9 - Nontraumatic subarachnoid hemorrhage, unspecified CT head without contrast Comparison: None Findings: Involutional change and nonspecific white matter hypodensity. No intracranial mass, midline shift, hydrocephalus, or acute hemorrhage. Orbits, paranasal sinuses, and mastoid air cells are unremarkable. No skull fracture Impression: 1. No acute findings This document has been electronically signed by: Alla Cabrera MD on 09/05/2024 14:35:31
--- OUTSIDE RECORDS SUMMARY | 2024-09-03 18:21 | XMS_ITS | Encounter Summary ---
Author Organization [facility] Address [address] [place] [address] Care Team Providers Care Rn Ortho Name Role Phone Petey Alicea Primary Care Provider [phone] Encounter Details Date Type Department Care Team (Late Contact Info) Description 05/11/2024 Lab Requisition [facility] - Main Lab [address] [facility] [place] [address] Maxx Aragon PA 100 [facility] 120 [place] [phone] Benign essential microscopic hematuria Social History Tobacco [...] Department Care Team (Late Contact Info) Description 09/17/2024 9:20 AM EDT Office Visit Gastroenterology - [place] 175 [facility] 175 [facility] 200 [place] [address] Nasreen Hyde NP 175 [facility] 200 [place], [place] [phone] 09/20/2024 4:20 PM EDT Office Visit Endocrinology [address] [phone] Jing Corley PA [address] [place] [address] 10/16/2024 9:30 AM EDT Office Visit Orthopedic Surgery - [place] 250 [address] [facility] [address] [place] [phone] Cameron Gannon DPM 175 [facility] [address] [place] [address] 10/25/2024 3:30 PM EDT Office Visit [facility] - [facility] [address] 300 [facility] 154 [place] [phone] Baron Johnson MD 300 [facility] 154 [place] [address] documented as of this encounter Procedures Procedure Name Priority Date/Time Associated Diagnosis Comments AP OUTSIDE CONSULT Routine 05/04/2024 12 :00 AM EST Benign essential microscopic hematuria documented in this encounter Results * Anatomic pathology outside consult (05/04/2024 12:00 AM EST) Final Diagnosis Urine, Voided ([id number]): Negative for high grade urothelial carcinoma. 05/28/2024 9:02 AM [facility] Clinical Information [id number] Cytology w/Reflex UroVysion (AUC/SHGUC) 05/28/2024 9:02 AM [facility] Gross Description A. Urine, Voided, : [id number] Received 1 TP (CYTO) with Reflex Fish if Atypical/Susp 05/28/2024 9:02 AM [facility] Disclaimer Unless otherwise specified, all tissue is 10% NB formalin fixed and paraffin embedded. Technical pathology services provided by [facility] at [address], [place] [address] (CLIA #[id number]/S tennille Demarco MD, Wool Sorter) 05/28/2024 9:[address] [facility] Tissue Urine specimen from urethra / Unknown 05/04/2024 05/11/2024 10:04 AM EST us [facility] PATHOLOGY ORDERAB LES Final Result [facility] [address] [place] [address], documented in this encounter Visit Diagnoses Diagnosis Benign essential microscopic hematuria documented in this encounter Care Teams Rn Ortho Relationship Specialty Start Date End Date Petey Alicea DO [address] [place] [phone] PCP - General Internal Medicine 07/18/20 documented as of this encounter
--- OUTSIDE RECORDS SUMMARY | 2024-09-03 18:21 | XMS_ITS | Clinical Summary ---
Author Organization [facility] Address [address] [place] [address] Care Team Providers Care Optical Glass Silverer Name Role Phone Petey Alicea DO Primary Care Provider [phone] Allergies Active Allergy Reactions Criticality Noted Date [...] age to complete this topic Care Teams Optical Glass Silverer Relationship Specialty Start Date End Date Petey Alicea DO [address] [place] [phone] PCP - General Internal Medicine 06/30/21
--- OUTSIDE RECORDS SUMMARY | 2024-09-03 18:21 | XMS_ITS | Encounter Summary ---
Author Organization [facility] Address [address] [place] [address] Care Team Providers Care Roof Truss Builder Name Role Phone Petey Alicea DO Primary Care Provider [phone] Encounter Details Date Type Department Care Team (Late st Contact Info) Description 08/29/2024 Telephone [place] [facility] [place] [address] [place] [phone] Bessy Cunningham MA Social History Tobacco Use Types Packs/Day Years [...] as of this encounter Progress Notes * Bessy Cunningham MA - 08/29/2024 4:36 PM EDT Got the information from [facility] put it on Jing in basket. * Lavinia Keith - 08/29/2024 2:50 PM EDT Yes patient went to [facility] in [facility]. * Bessy Cunningham MA - 08/29/2024 1:48 PM EDT Called patient Jing would like to know if he went to ER and which hospital? documented in this encounter Plan of Treatment Upcoming Encounters Date Type Department Care Team (Late st Contact Info) Description 09/17/2024 9:20 AM EDT Office Visit Gastroenterology - [place] [address] [place] 175 [facility] 200 [place] [phone] Nasreen Hyde NP 175 [facility] 200 [place] [address] 09/20/2024 4:20 PM EDT Office Visit Endocrinology - [place] [address] [place] [phone] Jing Corley PA [address] [place] [address] 10/16/2024 9:30 AM EDT Office Visit Orthopedic Surgery - [place] 250 175 [facility] 250 [place] [phone] Cameron Gannon DPM 175 [facility] 250 [place] [address] 10/25/2024 3:30 PM EDT Office Visit [facility] - [facility] 154 300 [facility] 154 [place] [phone] Baron Johnson MD 300 [facility] [address] [place] [address] documented as of this encounter Visit Diagnoses Not on filedocumented in this encounter Care Teams Roof Truss Builder Relationship Specialty Start Date End Date Petey Alicea DO [address] [place] [phone] PCP - General Internal Medicine 07/18/20 documented as of this encounter
--- OUTSIDE RECORDS SUMMARY | 2024-09-03 18:21 | XMS_ITS | Clinical Summary ---
Author Organization [facility] [address] [place] [address] [place] [phone] Phone Care Team Providers Care Buckle Sorter Name Role Phone Petey Alicea Primary Care Provider [phone] Allergies Active Allergy Reactions Criticality Noted Date Comments Aspirin 04/09/2021 Codeine 04/09/2021 Morphine 04/09/2021 Oxycodone-Acetaminophen 04/09/2021 Percocet Medications acetaminophen (TYLENOL) 325 mg tablet Take 2 Tablets by mouth every 6 hours as needed for Pain (mild to moderate pain) for up to 10 days. 3 Active amLODIPine (NORVASC) 10 mg tablet Take [...] Take 1 capsule by mouth daily. Active ferrous sulfate 325 mg (65 mg elemental iron) tablet Take 1 Tablet by mouth daily. Active gabapentin (NEURONTIN) 100 mg capsule Take 1 Capsule by mouth at bedtime. Active ketorolac (ACULAR) 0.5 % ophthalmic solution 1 Drop 4 times daily. Active loperamide (IMODIUM) 2 mg capsule Take 1 Capsule by mouth 2 times daily as needed for Diarrhea. 4 Active methylcellulos e, laxative, (CitruceL) 500 mg tablet Take 1 Tablet by mouth daily. 4 Active risperiDONE (RisperDAL) 1 mg tablet Take 3 Tablets by mouth at bedtime. Active traZODone (DESYREL) 150 mg tablet Take 1 tablet by mouth at bedtime. Active blood-glucose sensor (FreeStyle Yamila 3 Sensor) device Box = Kit = EA, use one sensor every 14 days. 2 each 3 4 Active loperamide (Imodium A-D) 2 mg tablet Take 1 tablet (2 mg total) by mouth 4 (four) times a day if needed for diarrhea. 60 tablet 11 4 Active insulin aspart (NovoLOG FlexPen) 100 unit/mL (3 mL) injection pen Inject 3-12 Units into the skin 3 times daily. Use three times a day before meals: <100: 0 units, 101-150: 3 units, 151-200: 4 units, 201-250: 5 units, 251-300: 7 units, 301-350: 9 units, 351-400: 10 units, >400: 11 units 5 Active OneTouch Ultra Test test strip To check sugars three times a day E11.9 300 each 3 5 Active blood-glucose meter (OneTouch Ultra2 Meter) misc To check sugars three times a day E11.9 1 kit 5 Active lancets 30 gauge misc To check sugars three times a day E11.9 300 each 3 5 Active carvediloL (COREG) 12.5 mg tablet TAKE 1 TABLET BY MOUTH TWICE DAILY WITH MEALS. 56 tablet 6 5 Active insulin glargine-yfgn (Semglee,insul in glarg-yfgn,Pen ) 100 unit/mL (3 mL) injection Use 45 units once daily in the morning 45 mL 1 5 Active apixaban (Eliquis) 5 mg tablet TAKE 1 TABLET BY MOUTH TWICE DAILY 56 tablet 5 5 Active apixaban (Eliquis) 5 mg tablet TAKE 1 TABLET BY MOUTH TWICE DAILY. 4 025 Discontinued Active Problems Problem Noted Date Diagnosed Date Type 2 diabetes mellitus wit h hyperglycemia, with long-term current use of insulin ([facility] V24, [facility] V28) 03/30/2024 Anemia 06/28/2022 Bipolar 1 disorder ([facility] V24, [facility] V28) COPD (chronic obstructive pu lmonary disease) ([facility] V24, [facility] V28) 06/28/2022 CVA (cerebral vascular accident) ([facility] V24, [facility] [place]/[facility] V28) 06/28/2022 Dementia ([facility] V24, [facility] V28) 06/28/2022 Overview (03/30/2024): In [facility] Depression 06/28/2022 Suicidal ideation 06/28/2022 Chest pain [...] does not resolve with rest. Atrial fibrillation ([facility] V24, [facility] V28) 1 06/09/2020 Overview (03/30/2024): Last Assessment & Plan: He [...] agrees to continue. Diabetes mellitus, type 2 ([facility] V24, [facility] V28) 04/09/2021 Diabetic peripheral neuropathy ([facility] V24, [facility] V28) 04/09/2021 Hyperlipidemia 04/09/2021 Overview (03/30/2024): Last Assessment [...] and shortness of breath as reported by [facility] director. Encounters Date Type Department Care Team Description 08/29/2024 Telephone Endocrinology [address] [phone] Bessy Cunningham MA 08/28/2024 Telephone Adult Medicine [facility] - [address] [phone] Daljit Rodriguez PA 07/27/2024 Telephone Endocrinology - [address] [phone] Jing Corley PA Medication 07/18/2024 Telephone Endocrinology [address] [phone] Jing Corley PA Medication Problem 07/16/2024 1:45 PM EST Office Visit Orthopedic Surgery [facility] [address] [phone] Cameron Gannon DPM Controlled type 2 diabetes with neuropathy (CMS/HCC V24, CMS/HCC V28) (Primary Dx); PVD (peripheral vascular disease) (CMS/HCC V24); Arthritis of both feet; Hammertoes of both feet; Dermatophytosis, nail 07/06/2024 1:00 PM EST Office Visit Orthopedic [facility] [address] [phone] Nima Zamora MD Cubital tunnel syndrome on left (Primary Dx); Carpal tunnel syndrome of left wrist 06/22/2024 4:00 PM EST Office Visit Endocrinology - [address] [phone] Jing Corley PA Type 2 diabetes mellitus with hyperglycemia, with long-term current use of insulin ([facility] V24, [facility] V28) (Primary Dx) from Last 3 Months Surgical History Surgery Date Site/Laterality Comments OTHER SURGICAL HISTORY 03/18/2016 PROCEDURE: HISTORY OTHER; COMMENT: incision AND drainage of left foot abcess CATARACT EXTRACTION PROCEDURE: HISTORICAL CATARACT REMOVAL Medical History Medical History Date Comments Carpal tunnel syndrome DX:Carpal tunnel syndrome Depression with suicidal ideation DX:Depression with suicidal ideation Incidental pulmonary nodule DX:I ncidental pulmonary nodule Left pontine stroke ([facility] V24, [facility] V28) DX:Left pontine stroke ([facility]) Osteoarthritis DX:Osteoarthriti s CVA (cerebral vascular accid ent) ([facility] V24, [facility] V28) DX:CVA (cerebral vascular ac cident) ([facility]) Passage of loose stools DX:Passa ge of [...] 9:20 AM EDT Office Visit Gastroenterology - [place] 175 [facility] 175 [facility] [address] [place] [phone] Nasreen Hyde NP 175 [facility] 200 [place] [address] 09/20/2024 4:20 PM EDT Office Visit Endocrinology - [place] [address] [place] [phone] Jing Corley PA [address] [place] [address] 10/16/2024 9:30 AM EDT Office Visit Orthopedic Surgery - [place] 250 175 [facility] 250 [place] [phone] Cameron Gannon DPM 175 [facility] [address] [place] [address] 10/25/2024 3:30 PM EDT Office Visit [facility] 154 300 [facility] 154 [place] [phone] Baron Johnson MD 300 [facility] 154 [place] [address] Health Maintenance Due Date Last Done Comments Diabetes: Annual Foot Exam 1955 Diabetes: Annual Retina Eye Exam 1955 Zoster Vaccines (1 of 2) 1994 DTaP,Tdap,and Td Vaccines (2 - Td or Tdap) 04/12/2015 04/12/2005 RSV Immunization Adult Patients (1 - 1-dose 75+ series) 11/17/2019 Pneumococcal [...] age to complete this topic Meningococcal B Vaccine Aged Out No l onger eligible based on patient's age to complete [...] physical exam (CPE) CVA (cerebral vascular accident) ([facility]/HCC V24, [facility] V28) DM (diabetes mellitus) ([facility]/HCC V24, [facility] V28) HLD (hyperlipidemia) Attn-defct hyperactivity disorder, predom hyperactive type PROSTATE SPECIFIC ANTIGEN SCREEN Routine 06/26/2024 10:48 AM EST Laboratory tests ordered as part of a complete physical exam (CPE) CVA (cerebral vascular accident) ([facility] V24, [facility] V28) DM (diabetes mellitus) ([facility] V24, [facility] V28) HLD (hyperlipidemia) Attn-defct hyperactivity disorder, predom hyperactive type Encounter for screening for malignant neoplasm of prostate CREATINE KINASE Routine 06/26/2024 10:48 AM EST Laboratory tests ordered as part of a complete physical exam (CPE) CVA (cerebral vascular accident) ([facility] V24, [facility] V28) DM (diabetes mellitus) ([facility] V24, [facility] V28) HLD (hyperlipidemia) Attn-defct hyperactivity disorder, predom hyperactive type LIPID PANEL WITH REFLEX TO DIRECT LDL Routine 06/26/2024 10:48 AM EST Laboratory tests ordered as part of a complete physical exam (CPE) CVA (cerebral vascular accident) ([facility] V24, [facility] V28) DM (diabetes mellitus) ([facility] V24, [facility] V28) HLD (hyperlipidemia) Attn-defct hyperactivity disorder, predom hyperactive type HEMOGLOBIN A1C Routine 06/26/2024 10:48 AM EST Type 2 diabetes mellitus with hyperglycemia, with long-term current use of insulin ([facility] V24, [facility] V28) POC GLUCOSE Routine 06/22/2024 4:25 PM EST Type 2 diabetes mellitus with hyperglycemia, with long-term current use of insulin ([facility] V24, [facility] V28) HEMOGLOBIN A1C Routine 06/11/2024 2:41 PM EST Hospital discharge follow-up DM (diabetes mellitus) ([facility] [place], [facility] V28) BASIC METABOLIC PANEL Routine 06/11/2024 2:41 PM EST Hospital discharge follow-up DM (diabetes mellitus) ([facility] V24, [facility] V28) from Last 3 Months Results * Prostate specific antigen screen (06/26/2024 10:48 AM EST) Pathologist [facility] PSA 0.91 0.00 - 4.00 ng/mL LAB CHEMISTRY METHOD 06/26/2024 4:44 PM EST [facility] Blood Venous blood specimen / Unknown Venipuncture / Unknown 06/26/2024 10:48 AM EST 06/26/2024 10:48 AM EST Narrative [facility] - 06/26/2024 4:44 PM EST The Siemens Advia As Seen on TVaur Chemiluminescent Immunoassay is used. Results obtained with different assay methods or kits cannot be used interchangeably. Results cannot be interpreted as absolute evidence of the presence or absence of malignant disease. Christopher Dubose LAB BLOOD ORDERABLES Final Resul t [facility] [address] [place] [address], [place] [phone] * (ABNORMAL) Lipid panel with reflex to direct LDL (06/26/2024 10:48 AM EST) Pathologist [facility] Cholesterol 97 0 - 200 mg/dL LAB CHEMISTRY METHOD 06/26/2024 4:30 PM [facility] Triglycerides 153(H) 0 - 150 mg/dL LAB CHEMISTRY METHOD 06/26/2024 4:30 PM [facility] HDL 38(L) >=40 mg/dL LAB CHEMISTRY METHOD 06/26/2024 4:30 PM [facility] LDL Calculated 28 0 - 100 mg/dL LAB CHEMISTRY METHOD 06/26/2024 4:30 PM [facility] VLDL Cholesterol John 30.6 mg/dL LAB CHEMISTRY METHOD 06/26/2024 4:30 PM [facility] Non HDL Chol. (LDL+VLDL) 59 <145 mg/dL LAB CHEMISTRY METHOD 06/26/2024 4:30 PM EST [facility] Chol/HDL Ratio 2.6 0.0 - 4.4 LAB CHEMISTRY METHOD 06/26/2024 4:30 PM EST [facility] Blood Venous blood specimen / Unknown Venipuncture / Unknown 06/26/2024 10:48 AM EST 06/26/2024 10:48 AM EST [facility] LAB BLOOD ORDERABLES Final Resul t Performing Organization Address City/[facility]/ZIP Co de Phone Number [facility] [address] [place] [address], [place] [phone] * Thyroid stimulating hormone (06/26/2024 10:48 AM EST) TSH 1.48 0.40 - 4.00 mcIU/mL LAB CHEMISTRY METHOD 06/26/2024 4:39 PM EST [facility] Blood Venous blood specimen / Unknown Venipuncture / Unknown 06/26/2024 10:48 AM EST 06/26/2024 10:48 AM EST [facility] BLOOD ORDER[facility]LES Final Resul t Performing Organization Address [facility]/ZIP Co de Phone Number [facility] [address] [place] [address], [place] [phone] * (ABNORMAL) Hemoglobin A1c (06/26/2024 10:48 AM EST) Only the most recent of2 resultswithin the time period is included. Hemoglobin A1C 7.8(H) <6.5 % LAB CHEMISTRY METHOD 06/27/2024 10:37 AM EST [facility] Mean Bld Glu Estim. 177 mg/dL LAB CHEMISTRY METHOD 06/27/2024 10:37 AM EST [facility] Blood Venous blood specimen / Unknown Venipuncture / Unknown 06/26/2024 10:48 AM EST 06/26/2024 10:48 AM EST us Jing MARTINEZ LAB BLOOD ORDERABLES Final Resul t Performing Organization Address [facility]/ZIP Co de Phone Number [facility] [address] [place] [address], [place] [phone] * Creatine kinase (06/26/2024 10:48 AM EST) [facility] Total CK 92 22 - 269 unit/L LAB CHEMISTRY METHOD 06/26/2024 4:30 PM EST [facility] Blood Venous blood specimen / Unknown Venipuncture / Unknown 06/26/2024 10:48 AM EST 06/26/2024 10:48 AM EST Christopher Dubose LAB BLOOD ORDERABLES Final Resul t Performing Organization Address [facility]/ZIP Co de Phone Number [facility] [address] [place] [address], [place] [phone] * (ABNORMAL) POC glucose manually resulted (06/22/2024 4:25 PM EST) [facility] Glucose POC 201 mg/dL Comment:non fasting Blood Capillary blood specimen / Unknown 06/22/2024 4:25 PM EST us Jing MARTINEZ POINT OF CARE TEST ENTER/EDIT OR DERABLES Final Result * (ABNORMAL) Basic metabolic panel (06/11/2024 2:41 PM EST) [facility] Sodium 139 133 - 145 mmol/L LAB CHEMISTRY METHOD 06/11/2024 7:50 PM EST [facility] Potassium 3.9 3.5 - 5.5 mmol/L LAB CHEMISTRY METHOD 06/11/2024 7:50 PM EST [facility] Chloride 104 96 - [...] 06/11/2024 7:50 PM [facility] eGFR 58(L) >=60 mL/min/1. 73m2 LAB CHEMISTRY METHOD 06/11/2024 7:50 PM [facility] Comment:Calculation based on the??Chronic Kidney Disease Epidemiology Collaboration (CKD-EPI) equation refit??without adjustment for race. BUN/Creatinine Ratio 23.8 LAB CHEMISTRY METHOD 06/11/2024 7:50 PM [facility] Calcium 9.2 8.5 - 10.5 mg/dL LAB CHEMISTRY METHOD 06/11/2024 7:50 PM [facility] Blood Venous blood specimen / Unknown Venipuncture / Unknown 06/11/2024 2:41 PM EST 06/11/2024 2:41 PM EST us Christopher Dubose LAB BLOOD ORDERABLES Final Resul t [facility] [address] [place] [address], from Last 3 Months Insurance MEDICARE MEDICAID - [place] Advance Directives Documents on File Type Date Recorded Patient Power Shovel Operator Expl anation Health Care Decision (hx) 12/28/2022 [...] (hx) 03/24/2016 AD COBB DIRECTIVE Care Teams Buckle Sorter Relationship Specialty Start Date End Date Petey Alicea DO [address] [place] [phone] PCP - General Internal Medicine 07/18/20
--- OUTSIDE RECORDS SUMMARY | 2024-09-03 18:21 | XMS_ITS | Encounter Summary ---
Author Organization [facility] Address [address] [place] [address] Care Team Providers Care Cutter And Paster Press Clippings Name Role Phone Petey Alicea Primary Care Provider [phone] Encounter Details Date Type Department Care Team (Late st Contact Info) Description 08/28/[address] [facility] [address] [place] [phone] Daljit Rodriguez PA [address] [place] [address] Social History Tobacco Use Types Packs/Day Years [...] Notes * Bessy Cunningham MA - 08/29/2024 4:37 PM EDT Received the information gave it to Jing * Bessy Cunningham MA - 08/29/2024 1:47 PM EDT Called patient left him a message to call the office Jing would like to know if he went to ER and which hospital. * JUAN Stokes - 08/29/2024 9:34 AM EDT Please call patient to follow-up--did he go to the ER? Which ER? Can we get notes please? * JUAN Warner - 08/28/2024 6:10 PM EDT strand forming machine operator received call around 6pm. Pt apparently had glucose over 400 also had significant HTN with >190/100. Nurse called ems to eval. Mendez to Jing documented in this encounter Plan of Treatment Upcoming Encounters Date Type Department Care Team (Late st Contact Info) Description 09/17/2024 9:20 AM EDT Office Visit Gastroenterology - [place] 175 [facility] 175 [facility] [address] [place] [phone] Nasreen Hyde NP [address] [address] 09/20/2024 4:20 PM EDT Office Visit Endocrinology - [place] [address] [place] [address] Jing Corley PA [address] [place] [address] 10/16/2024 9:30 AM EDT Office Visit Orthopedic Surgery - [place] [address] [phone] Cameron Gannon DPM 175 [facility] [address] [place] [address] 10/25/2024 3:30 PM EDT Office Visit [facility] 154 300 [facility] 154 [place] [phone] Baron Johnson MD [address] [place] [address] documented as of this encounter Visit Diagnoses Not on filedocumented in this encounter Care Teams Cutter And Paster Press Clippings Relationship Specialty Start Date End Date Petey Alicea DO [address] [place] [phone] PCP - General Internal Medicine 07/18/20 documented as of this encounter
== END 2024-09-03 16:11 | disposition home or self-care (01) ==
LOC: HO.CT 16:10
PROVIDERS: Visit Provider Psychiatry & Neurology Neurology
DX: I60.9 Nontraumatic subarachnoid hemorrhage, unspecified (principal)
CPT/HCPCS: 70450

== ENCOUNTER → 2024-09-03 16:17 | Outpatient (BNV) | payer MEDICARE, MEDICAID, SELFPAY | PROVIDERS: Visit Provider Radiology Diagnostic Radiology | DX: I60.9 Nontraumatic subarachnoid hemorrhage, unspecified (principal) | CPT/HCPCS: 70450 ==

== ENCOUNTER 2024-09-14 09:23 | Outpatient (AMB) | payer MEDICARE, MEDICAID, SELFPAY ==
[2024-09-14 09:28] VITALS: PULSE 61; O2SAT 96; BMI 33.7
--- NOTE | 2024-09-14 09:28 | A.OFFVIS_ITS ---
Vital Signs 09/14/24 09:28 Height 5 ft 9 in Weight 228 lb BMI 33.7 Pulse 61 Pulse Source Pulse Oximeter Pulse Oximetry (%) 96 Oxygen Delivery Method Room Air Intake Visit Reasons: CT scan follow-up Intake Note: Patient presents follow up SAH. CT in chart 09/05/24. Accompanied by: Other Relationship Allergies aspirin Allergy (Mild, Verified 09/14/24 09:39) Hives codeine Allergy (Mild, Verified 09/14/24 09:39) Rash morphine Allergy (Mild, Verified 09/14/24 09:39) Rash oxycodone Allergy (Mild, Verified 09/14/24 09:39) Rash HPI Comments Details: 78y/o male comes for neurological evaluation. Lizbet is here from [employer] a [facility] and helps with history. On 07/11/2024 he had a fall and was taken to [facility]. He was in a wheelchair van and the chair fell backwards. Patient struck his head, No LOC.CT head showed 10X9 mm focal SAH in the Lateral Sylvian fissure with trace SAH in inferior frontal lobe. Plavix and Eliquis was held for [address] Scan 09/05/2024 reviewed today and he was started on Eliquis and Plavix per pcp. He reports no neurologic concerns, with the exception of l. hand cerebral tunnel and wears a brace as needed. He declined cortisone inj, and has PT for L. hand 2x a week. He had a MMSE 09/13/2024 with his PCP, he did not do well on orientation to time and location, also on recall was unable to identify or state 3 times. He continues to be disoriented and gets easily confused. On September 11 he became hypoglycemic and confused once again as he does not eat a well balanced diet and or forgets to eat. He goes to a day program 5x a week from 9am to 3pm, and also has PT/OT 3x a week. He visits his psychiatrist every 3 months for management of his meds. He denies any hallucinations, and usually keeps to himself per staff. PMH: Pt. presented to the ER on 02/2021 with r. facial droop, and slurred speech after a nap at his assisted. patient has h/o diabetes and in ER found to be hypoglycemic. As per notes patient did not eat that day due to fatigue and he took his medications for diabetes. His Blood glucose was 59 and BP 185/78. The speech and facial droop was transient and not seen during the ER physician's exam. He had a tele-health Neuro consult at that time and was concluded that it was related to hypoglycemia. CT did not show acute changes. 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 A2 (LIZZ) and r. ICA he was switched from xarelto to eliquis about 1mth ago. He denied any new neurological symptoms. [facility] Medical History SAH (subarachnoid hemorrhage) Arthritis Systolic dysfunction Diabetic neuropathy Hyperlipidemia HTN (hypertension) Diabetes Depression with suicidal ideation Carpal tunnel syndrome Atrial fibrillation Cataract Cataract Surgical History Hx of colonoscopy History of ankle surgery Hx of hernia repair Hx of hernia repair Hx of hernia repair Hx of knee surgery History of knee replacement Social History Household Members: Other Alcohol intake: never Patient Tobacco Use Status: Never used Tobacco Physical Exam Vital Signs: Last Vital Signs Pulse 61 09/14/24 09:28 Pulse Ox 96 09/14/24 09:28 Oxygen Delivery Method Room Air 09/14/24 09:28 BMI result Body Mass Index 33.7 Const General: cooperative, healthy appearing and comfortable Nutritional Appearance: obese Orientation/consciousness: oriented to person and oriented to place Eyes Pupils: Equal, round and reactive pupils present Neuro General: oriented to person, oriented to place, moves all extremities, no focal motor deficits and Unable to assess gait Cranial nerves: Yes Equal, round and reactive pupils present, Yes Bilaterally intact EOM present, Yes Normal facial strength present, Yes Midline tongue present and Yes Ability to bilaterally rotate head present Speech: Other speech findings present (Neuro) (Poverty of Speech) Gait exam (Neuro): Unable to assess gait, Assistive device used and Other gait observations present (always sits in a wheel chair) Motor exam (neuro): Abnormal motor strength present and Abnormal muscle tone present Deep tendon reflexes (DTR's): Right triceps reflex intensity grade: 2+, Left triceps reflex intensity grade: 2+, Rt Biceps (C5, C6): 2+, Left biceps reflex intensity grade: 2+, Right brachioradialis reflex intensity grade: 2+, Left brachioradialis reflex intensity grade: 2+, Right patellar reflex intensity grade: 2+ and Left patellar reflex intensity grade: 2+ Coordination: [id number] test normal (overshoots or undershoots, hesitates, tremors) and rapid alternating movements of the distal upper extremity normal Psych Appearance: disheveled Speech and movement: Slowed speech present (Psych) and Slowed movement present (Neuro) Affect: Blunted affect present Attitude: cooperative Insight: Limited insight present (Psych) Judgement: Limited judgement present (Psych) Results Reviewed Results Reviewed: Findings: Involutional change and nonspecific white matter hypodensity. No intracranial mass, midline shift, hydrocephalus, or acute hemorrhage. Orbits, paranasal sinuses, and mastoid air cells are unremarkable. No skull fracture Impression: 1. No acute findings Assessment & Plan Assessment & Plan (1) SAH (subarachnoid hemorrhage): Comment: fall on 07/11/2024 - Plavix and Eliquis on hold for 4 weeks Code(s): I60.9 - Nontraumatic subarachnoid hemorrhage, unspecified Category: Medical (2) Transient neurologic deficit: Comment: Likely related to hypoglycemia in Feb 2021 . Code(s): R29.818 - Other symptoms and signs involving the nervous system Category: Medical Plan Continuing on Eliquis and Plavix per pcp. CT scan was reviewed with patient today F/u with cardiology No evidence of tardive dyskinesia F/u as needed Patient Instructions: Sleep Hygiene provided: set a scheduled bedtime and wake time to help regulate the circadian rhythm and balance the release of pituitary hormones. Sleep in a dark room, temperatures below 68 degrees, and no devices n bed. Limit caffeinated products 6 hours prior to bed, and limit fluids 2-4 hours prior to bed. Gentle night yoga, diffusing essential oils, and playing soft music can be relaxing. For cognitive decline, stay socially active do puzzles and continue PT/OT as needed, walk with a rolling walker, get out of the wheel chair with PT. Coding Level of Care Code Est Pt Level 4 (72771) Diagnoses SAH (subarachnoid hemorrhage) I60.9 Transient neurologic deficit R29.818 Time Spent (min) 30
--- OUTSIDE RECORDS SUMMARY | 2024-09-14 09:36 | XMS_ITS | Clinical Summary ---
Author Organization [facility] Address [address] [place] [address] Care Team Providers Care Jerker Name Role Phone Petey Alicea DO Primary Care Provider [phone] Allergies Active Allergy Reactions Criticality Noted Date [...] age to complete this topic Care Teams Jerker Relationship Specialty Start Date End Date Petey Alicea DO [address] [place] [address] [id number] PCP - General Internal Medicine 06/30/21
--- OUTSIDE RECORDS SUMMARY | 2024-09-14 09:36 | XMS_ITS | Clinical Summary ---
Author Organization [facility] [address] [place] [address] [place] [phone] Phone Care Team Providers Care Spa Director Name Role Phone Petey Alicea Primary Care Provider [phone] Allergies Active Allergy Reactions Criticality Noted Date [...] TWICE DAILY 56 tablet 5 5 Active glucose 4 gram chewable tablet Take 1-2 tablets as need for low sugars 30 tablet 1 5 Active apixaban (Eliquis) 5 mg tablet TAKE 1 TABLET BY MOUTH TWICE DAILY. 4 025 Discontinued Active Problems Problem Noted Date Diagnosed Date Type 2 diabetes mellitus wit h hyperglycemia, with long-term current use of insulin ([facility] V24, [facility] V28) 03/30/2024 Anemia 06/28/2022 Bipolar 1 disorder ([facility] V24, [facility] V28) COPD (chronic obstructive pu lmonary disease) ([facility] V24, [facility] V28) 06/28/2022 CVA (cerebral vascular accident) ([facility]24, [place] V28) 06/28/2022 Dementia ([facility] V24, [facility] V28) 06/28/2022 Overview (03/30/2024): In long-term Depression 06/28/2022 Suicidal ideation 06/28/2022 Chest pain [...] does not resolve with rest. Atrial fibrillation ([facility] V24, [facility] V28) 1 06/09/2020 Overview (03/30/2024): Last Assessment [...] agrees to continue. Diabetes mellitus, type 2 ([facility] V24, [facility] V28) 04/09/2021 Diabetic peripheral neuropathy ([facility] V24, [facility] V28) 04/09/2021 Hyperlipidemia 04/09/2021 Overview (03/30/2024): Last [...] and shortness of breath as reported by long-term director. Encounters Date Type Department Care Team Description 09/12/2024 Lab Requisition [facility] - Main Lab [address] [place] [address] Ada Goss NP Hematuria, unspecified; Urinary tract infection, site not specified 09/11/2024 Telephone Endocrinology - [address] [phone] Jing Corley PA MEDICATION 08/29/2024 Telephone Endocrinology [address] [phone] Bessy Cunningham MA 08/28/2024 Telephone Adult Medicine [facility] - [address] [phone] Daljit Rodriguez PA 07/27/2024 Telephone Endocrinology [address] [phone] Jing Corley PA Medication 07/18/2024 Telephone Endocrinology [address] [phone] Jing Corley PA Medication Problem 07/16/2024 1:45 PM EST Office Visit Orthopedic Surgery - [address] [phone] Cameron Gannon DPM Controlled type 2 diabetes with neuropathy ([facility] V24, [facility] V28) (Primary Dx); PVD (peripheral vascular disease) ([facility] V24); Arthritis of both feet; Hammertoes of both feet; Dermatophytosis, nail 07/06/2024 1:00 PM EST Office Visit Orthopedic Surgery - [place] [address] [phone] Nima Zamora MD Cubital tunnel syndrome on left (Primary Dx); Carpal tunnel syndrome of left wrist 06/22/2024 4:00 PM EST Office Visit Endocrinology [address] [phone] Jing Corley PA Type 2 diabetes mellitus with hyperglycemia, with long-term current use of insulin ([facility] V24, [facility] V28) (Primary Dx) from Last 3 Months [...] DX:I ncidental pulmonary nodule Left pontine stroke ([facility] V24, [facility] V28) DX:Left pontine stroke ([facility]) Osteoarthritis DX:Osteoarthriti s CVA (cerebral vascular accid ent) ([facility] V24, [facility] V28) DX:CVA (cerebral vascular ac cident) ([facility]) Passage of loose stools DX:Passa ge of [...] 9:20 AM EDT Office Visit Gastroenterology - [place] [address] [phone] Nasreen Hyde NP [address] [address] 09/20/2024 4:20 PM EDT Office Visit Endocrinology - [place] [phone] [place] [phone] Jing Corley PA [address] [place] [address] 10/16/2024 9:30 AM EDT Office Visit Orthopedic Surgery - [place] [address] [phone] Cameron Gannon DPM [address] [address] 10/25/2024 3:30 PM EDT Office Visit [facility] [address] [facility] [address] [place] [phone] Baron Johnson MD 300 [facility] [address] [place] [address] Health Maintenance Due Date Last Done Comments [...] Diabetes: Annual Urine Albumin-Creatinine Ratio (uACR) 05/08/2022 COVID-19 Vaccine ( season) 2024 03/23/2024, 09/01/2021, 03/09/2021 Diabetes: Blood Sugar Control Test (HGBA1C) 12/24/2024 06/26/2024, 06/11/2024 Diabetes: Annual GFR (Glomerular Filtration Rate) 06/11/2025 06/11/2024 Hypertension/CHF/CAD Annual BMP Blood Test 06/11/2025 06/11/2024 Cholesterol Screening (Lipid Panel) 06/26/2029 06/26/2024 Influenza Vaccine Completed 02/24/2024, , 02/02/2022, Additional history exists HIB Vaccines Aged Out No longer eligi [...] Procedure Name Priority Date/Time Associated Diagnosis Comments URINALYSIS WITH REFLEX MICROSCOPIC Routine 09/12/2024 1:30 PM EDT Hematuria, unspecified Urinary tract infection, site not specified URINALYSIS WITH REFLEX MICROSCOPIC Routine 09/12/2024 1:30 PM EDT Hematuria, unspecified Urinary tract infection, site not specified CULTURE URINE Routine 09/12/2024 1:30 PM EDT Hematuria, unspecified Urinary tract infection, site not specified CBC WITH AUTO DIFFERENTIAL Routine 09/07/2024 3:18 PM EDT Urinary tract infection, site not specified Hematuria syndrome Anemia, unspecified CBC AND DIFFERENTIAL Routine 09/07/2024 3:18 PM EDT Urinary tract infection, site not specified Hematuria syndrome Anemia, unspecified THYROID STIMULATING HORMONE Routine 06/26/2024 10:48 AM EST Laboratory tests ordered as part of a complete physical exam (CPE) CVA (cerebral vascular accident) ([facility] V24, [facility] V28) DM (diabetes mellitus[facility] ([facility] V24, [facility] V28) HLD (hyperlipidemia) Attn-defct hyperactivity disorder, predom hyperactive type PROSTATE SPECIFIC ANTIGEN SCREEN Routine 06/26/2024 10:48 AM EST Laboratory tests ordered as part of a complete physical exam (CPE) CVA (cerebral vascular accident) ([facility] V24, [facility] V28) DM (diabetes mellitus[facility] ([facility] V24, [facility] V28) HLD (hyperlipidemia) Attn-defct hyperactivity disorder, predom hyperactive type Encounter for screening for malignant neoplasm of prostate CREATINE KINASE Routine 06/26/2024 10:48 AM EST Laboratory tests ordered as part of a complete physical exam (CPE) CVA (cerebral vascular accident) ([facility] V24[facility] V28) DM (diabetes mellitus[facility] ([facility] V24, [facility] V28) HLD (hyperlipidemia) Attn-defct hyperactivity disorder, predom hyperactive type LIPID PANEL WITH REFLEX TO DIRECT LDL Routine 06/26/2024 10:48 AM EST Laboratory tests ordered as part of a complete physical exam (CPE) CVA (cerebral vascular accident) ([facility] V24, [facility] V28) DM (diabetes mellitus[facility] ([facility] V24, [facility] V28) HLD (hyperlipidemia) Attn-defct hyperactivity disorder, predom hyperactive type HEMOGLOBIN A1C Routine 06/26/2024 10:48 AM EST Type 2 diabetes mellitus with hyperglycemia, with long-term current use of insulin ([facility] V24, [facility] V28) POC GLUCOSE Routine 06/22/2024 4:25 PM EST Type 2 diabetes mellitus with hyperglycemia, with long-term current use of insulin ([facility] V24, [facility] V28) BASIC METABOLIC PANEL Routine 06/11/2024 2:41 PM EST Hospital discharge follow-up DM (diabetes mellitus) ([facility] V24, [facility] V28) from Last 3 Months or Most Recently Relevant to Health Maintenance Results * (ABNORMAL) Urinalysis with reflex microscopic (09/12/2024 1:30 PM EDT) [facility] Specific Nikolai Urine 1.013 1.003 - 1.030 LAB URINALYSIS - AUTOMATED METHOD 09/12/2024 3:37 PM EDT [facility] pH, Urine 7.0 5.0 - 8.0 pH LAB URINALYSIS - AUTOMATED METHOD 09/12/2024 3:37 PM [facility] Leukocytes, Urine Trace(A) Negative LAB URINALYSIS - AUTOMATED METHOD 09/12/2024 3:37 PM T [facility] Nitrite, Urine Negative Negative LAB URINALYSIS - AUTOMATED METHOD 09/12/2024 3:37 PM [facility] Protein, Urine 30(A) <=Trace mg/dL LAB URINALYSIS - AUTOMATED METHOD 09/12/2024 3:37 PM [facility] Glucose, Urine 100(A) Negative mg/dL LAB URINALYSIS - AUTOMATED METHOD 09/12/2024 3:37 PM [facility] Ketones, Urine Negative Negative mg/dL LAB URINALYSIS - AUTOMATED METHOD 09/12/2024 3:37 PM [facility] Urobilinogen, Urine 0.2 0.2 - 1.0 mg/dL LAB URINALYSIS - AUTOMATED METHOD 09/12/2024 3:37 PM [facility] Bilirubin, Urine Negative Negative LAB URINALYSIS - AUTOMATED METHOD 09/12/2024 3:37 PM [facility] Blood, Urine Negative Negative LAB URINALYSIS - AUTOMATED METHOD 09/12/2024 3:37 PM [facility] RBC, Urine 2.9 0 - 4 /HPF LAB URINALYSIS - AUTOMATED METHOD 09/12/2024 3:37 PM [facility] WBC, Urine 6.1(H) 0 - 4 /HPF LAB URINALYSIS - AUTOMATED METHOD 09/12/2024 3:37 PM [facility] Squamous Epithelial, Urine >100(H) 0 - 60 /LPF LAB URINALYSIS - AUTOMATED METHOD 09/12/2024 3:37 PM [facility] Bacteria, Urine Negative Negative /HPF LAB URINALYSIS - AUTOMATED METHOD 09/12/2024 3:37 PM [facility] Hyaline Casts, Urine 2.0 0 - 3 /LPF LAB URINALYSIS - AUTOMATED METHOD 09/12/2024 3:37 PM [facility] Urine Urine specimen obtained by clean catch procedure / Unknown 09/12/2024 1:30 PM EDT 09/12/2024 3:25 PM EDT Ada Goss PRICE ANALYST LAB URINE ORDERABLES Fi nal Result [facility] [address] [place] [address], [place] [phone] * Culture urine (09/12/2024 1:30 PM EDT) Pathologist [facility] Culture, Urine 10,000-49,000 CFU/mL Mixed urogenital prieto, no uropathogens present. Suggest repeat specimen if clinically indicated. 09/13/2024 9:48 AM EDT [facility] Urine Urine specimen obtained by clean catch procedure / Unknown 09/12/2024 1:30 PM EDT 09/12/2024 3:25 PM EDT Ada Goss NP LAB MICROBIOLOGY - GENE RAL ORDERABLES Final Result Performing Organization Address [facility]/ZIP Co de Phone Number [facility] [address] [place] [address], [place] [phone] * (ABNORMAL) CBC auto differential (09/07/2024 3:18 PM EDT) WBC 11.7(H) 4.8 - 10.8 K/[facility] LAB HEMETOLOGY METHOD 09/07/2024 8:04 PM EDT [facility] RBC 3.90(L) 4.50 - 5.50 M/[facility] LAB HEMETOLOGY METHOD 09/07/2024 8:04 PM EDT [facility] Hemoglobin 10.3(L) 13.5 - 17.5 g/dL LAB HEMETOLOGY METHOD 09/07/2024 8:04 PM EDT [facility] Hematocrit 33.2(L) 42.0 - 54.0 % LAB HEMETOLOGY METHOD 09/07/2024 8:04 PM EDT [facility] MCV 85.3 79.0 - 98.0 FL LAB HEMETOLOGY METHOD 09/07[facility]2024 8:[facility] MCH 26.5(L) 27.0 - 32.0 pcg LAB HEMETOLOGY METHOD 09/07/2024 8:04 [facility] MCHC 31.0(L) 32.0 - 37.0 g/dL LAB HEMETOLOGY METHOD 09/07/2024 8:04 PM [facility] RDW 14.8 11.0 - 15.0 % LAB HEMETOLOGY METHOD 09/07/2024 8:04 PM [facility] Platelets 310 130 - 400 K/mcL LAB HEMETOLOGY METHOD 09/07/2024 8:04 PM [facility] MPV 9.9 7.0 - 11.0 FL LAB HEMETOLOGY METHOD 09/07/2024 8:04 PM [facility] NRBC 0.0 <1.0 % LAB HEMETOLOGY METHOD 09/07/2024 8:04 PM [facility] NRBC Absolute 0.00 <0.10 K/mcL LAB HEMETOLOGY METHOD 09/07/2024 8:04 PM [facility] Neutrophils Relative 70.7 % LAB HEMETOLOGY METHOD 09/07/2024 8:04 PM [facility] Lymphocytes Relative 16.5 % LAB HEMETOLOGY METHOD 09/07/2024 8:04 PM [facility] Monocytes Relative 9.0 % LAB HEMETOLOGY METHOD 09/07/2024 8:04 PM [facility] Eosinophils Relative 2.6 % LAB HEMETOLOGY METHOD 09/07/2024 8:04 PM [facility] Basophils Relative 0.9 % LAB HEMETOLOGY METHOD 09/07/2024 8:04 PM EDT [facility] Immature Granulocytes Relative 0.3 % LAB HEMETOLOGY METHOD 09/07/2024 8:04 PM EDT [facility] Neutrophils Absolute 8.30(H) 1.50 - 7.00 K/mcL LAB HEMETOLOGY METHOD 09/07/2024 8:04 PM EDT [facility] Lymphocytes Absolute 1.93 1.00 - 5.00 K/mcL LAB HEMETOLOGY METHOD 09/07/2024 8:04 PM EDT [facility] Monocytes Absolute 1.05(H) 0.20 - 1.00 K/mcL LAB HEMETOLOGY METHOD 09/07/2024 8:04 PM EDT [facility] Eosinophils Absolute 0.30 0.00 - 0.50 K/mcL LAB HEMETOLOGY METHOD 09/07/2024 8:04 PM EDT [facility] Basophils Absolute 0.10 0.00 - 0.20 K/mcL LAB HEMETOLOGY METHOD 09/07/2024 8:04 PM EDT [facility] Immature Granulocytes Absolute 0.03 0.00 - 0.03 K/mcL LAB HEMETOLOGY METHOD 09/07/2024 8:04 PM EDT [facility] Blood Venous blood specimen / Unknown Venipuncture / Unknown 09/07/2024 3:18 PM EDT 09/07/2024 3:18 PM EDT us Christopher Dubose LAB BLOOD ORDERABLES Final Resul t [facility] [address] [place] [address], * Prostate specific antigen screen (06/26/2024 10:48 AM EST) PSA 0.91 0.00 - 4.00 ng/mL LAB CHEMISTRY METHOD 06/26/2024 4:44 PM [facility] Blood Venous blood specimen / Unknown Venipuncture / Unknown 06/26/2024 10:48 AM EST 06/26/2024 10:48 AM EST Narrative [facility] - 06/26/2024 4:44 PM EST The Siemens Advia Centaur Chemiluminescent Immunoassay is used. Results obtained with different assay methods or kits cannot be used interchangeably. Results cannot be interpreted as absolute evidence of the presence or absence of malignant disease. us Christopher Dubose LAB BLOOD ORDERABLES Final Resul t [facility] [address] [place] [address], [place] [phone] * (ABNORMAL) Lipid panel with reflex to direct LDL (06/26/2024 10:48 AM EST) Cholesterol 97 0 - 200 mg/dL LAB CHEMISTRY METHOD 06/26/2024 4:30 PM [facility] Triglycerides 153(H) 0 - 150 mg/dL LAB CHEMISTRY METHOD 06/26/2024 4:30 PM [facility] HDL 38(L) >=40 mg/dL LAB CHEMISTRY METHOD 06/26/2024 4:30 PM [facility] LDL Calculated 28 0 - 100 mg/dL LAB CHEMISTRY METHOD 06/26/2024 4:30 PM [facility] VLDL Cholesterol John 30.6 mg/dL LAB CHEMISTRY METHOD 06/26/2024 4:30 PM [facility] Non HDL Chol. (LDL+VLDL) 59 <145 mg/dL LAB CHEMISTRY METHOD 06/26/2024 4:30 PM [facility] Chol/HDL Ratio 2.6 0.0 - 4.4 LAB CHEMISTRY METHOD 06/26/2024 4:30 PM [facility] Blood Venous blood specimen / Unknown Venipuncture / Unknown 06/26/2024 10:48 AM EST 06/26/2024 10:48 AM EST Crhistopher Dubose LAB BLOOD ORDERABLES Final Resul t [facility] [address] [place] [address], [place] [phone] * Thyroid stimulating hormone (06/26/2024 10:48 AM EST) Pathologist [facility] TSH 1.48 0.40 - 4.00 mcIU/mL LAB CHEMISTRY METHOD 06/26/2024 4:39 PM EST [facility] Blood Venous blood specimen / Unknown Venipuncture / Unknown 06/26/2024 10:48 AM EST 06/26/2024 10:48 AM EST Christopher Dubose LAB BLOOD ORDERABLES Final Resul t Performing Organization Address [facility]/ZIP Co de Phone Number [facility] [address] [place] [address], [place] [phone] * (ABNORMAL) Hemoglobin A1c (06/26/2024 10:48 AM EST) Pathologist [facility] Hemoglobin A1C 7.8(H) <6.5 % LAB CHEMISTRY METHOD 06/27/2024 10:37 AM EST [facility] Mean Bld Glu Estim. 177 mg/dL LAB CHEMISTRY METHOD 06/27/2024 10:37 AM EST [facility] Blood Venous blood specimen / Unknown Venipuncture / Unknown 06/26/2024 10:48 AM EST 06/26/2024 10:48 AM EST Jing MARTINEZ LAB BLOOD ORDERABLES Final Resul t Performing Organization Address City/[facility]/ZIP Co de Phone Number [facility] [address] [place] [address], [place] [phone] * Creatine kinase (06/26/2024 10:48 AM EST) [facility] Total CK 92 22 - 269 unit/L LAB CHEMISTRY METHOD 06/26/2024 4:30 PM [facility] Blood Venous blood specimen / Unknown Venipuncture / Unknown 06/26/2024 10:48 AM EST 06/26/2024 10:48 AM EST Christopher Dubose LAB BLOOD ORDERABLES Final Resul t [facility] [address] [place] [address], [place] [phone] * (ABNORMAL) POC glucose manually resulted (06/22/2024 4:25 PM EST) [facility] Glucose POC 201 mg/dL Comment:non fasting Blood Capillary blood specimen / Unknown 06/22/2024 4:25 PM EST Jing MARTINEZ POINT OF CARE TEST ENTER/EDIT OR DERABLES Final Result * (ABNORMAL) Basic metabolic panel (06/11/2024 2:41 PM EST) [facility] Sodium 139 133 - 145 mmol/L LAB CHEMISTRY METHOD 06/11/2024 7:50 PM [facility] Potassium 3.9 3.5 - 5.5 mmol/L LAB CHEMISTRY METHOD 06/11/2024 7:50 PM [facility] Chloride 104 96 - 110 mmol/L LAB CHEMISTRY METHOD 06/11/2024 7:50 PM [facility] CO2 30 21 - 32 mmol/L LAB CHEMISTRY METHOD 06/11/2024 7:50 PM [facility] Anion Gap 5 3 - 11 LAB CHEMISTRY METHOD 06/11/2024 7:50 PM [facility] Glucose 180(H) 70 - 100 mg/dL LAB CHEMISTRY METHOD 06/11/2024 7:50 PM EST [facility] BUN 30(H) 5 - 25 mg/dL LAB CHEMISTRY METHOD 06/11/2024 7:50 PM [facility] Creatinine 1.26 0.70 - 1.30 mg/dL LAB CHEMISTRY METHOD 06/11/2024 7:50 PM [facility] eGFR 58(L) >=60 mL/min/1. 73m2 LAB CHEMISTRY METHOD 06/11/2024 7:50 PM EST [facility] Comment:Calculation based on the??Chronic Kidney Disease Epidemiology Collaboration (CKD-EPI) equation refit??without adjustment for race. BUN/Creatinine Ratio 23.8 LAB CHEMISTRY METHOD 06/11/2024 7:50 PM [facility] Calcium 9.2 8.5 - 10.5 mg/dL LAB CHEMISTRY METHOD 06/11/2024 7:50 PM [facility] Blood Venous blood specimen / Unknown Venipuncture / Unknown 06/11/2024 2:41 PM EST 06/11/2024 2:41 PM EST us Christopher Dubose LAB BLOOD ORDERABLES Final Resul t [facility] [address] [place] [address], from Last 3 Months or Most Recently Relevant to Health Maintenance Insurance MEDICARE [place]ICA[place] - [place] Advance Directives Documents on File Type Date Recorded Patient New Car Salesperson Expl anation Health Care Decision (hx) 12/28/2022 [...] (hx) 03/24/2016 AD COBB DIRECTIVE Care Teams Spa Director Relationship Specialty Start Date End Date Petey Alicea DO [address] [place] [phone] PCP - General Internal Medicine 07/18/20
--- OUTSIDE RECORDS SUMMARY | 2024-09-14 09:36 | XMS_ITS | Encounter Summary ---
Author Organization [facility] Address [address] [place] [address] Care Team Providers Care Equipment Detailer Name Role Phone Petey Alicea Primary Care Provider [phone] Encounter Details Date Type Department Care Team (Late st Contact Info) Description 09/12/2024 Lab Requisition [facility] - Main Lab 299 [facility] [place] [address] Ada Goss NP 200 [place] [phone] Hematuria, unspecified; Urinary tract infection, site not specified Social History Tobacco Use Types Packs/Day Years [...] 9:20 AM EDT Office Visit Gastroenterology - [place] 175 [facility] [address] [address] Nasreen Hyde NP [address] [phone] 09/20/2024 4:20 PM EDT Office Visit Endocrinology [address] [place] [address] Jing Corley PA 444 [place] [address] 10/16/2024 9:30 AM EDT Office Visit Orthopedic Surgery - [place] 250 175 [facility] 250 [place] [phone] Cameron Gannon DPM 175 [facility] 250 [place] [address] 10/25/2024 3:30 PM EDT Office Visit [facility] - [facility] 154 300 [facility] 154 [place] [phone] Baron Johnson MD 300 [facility] 154 [place] [address] documented as of this encounter Procedures Procedure Name Priority Date/Time Associated Diagnosis Comments URINALYSIS WITH REFLEX MICROSCOPIC Routine 09/12/2024 1:30 PM EDT Hematuria, unspecified Urinary tract infection, site not specified URINALYSIS WITH REFLEX MICROSCOPIC Routine 09/12/2024 1:30 PM EDT Hematuria, unspecified Urinary tract infection, site not specified CULTURE URINE Routine 09/12/2024 1:30 PM EDT Hematuria, unspecified Urinary tract infection, site not specified documented in this encounter Results * (ABNORMAL) Urinalysis with reflex microscopic (09/12/2024 1:30 PM EDT) Specific [facility] Urine 1.013 1.003 - 1.030 LAB URINALYSIS - AUTOMATED METHOD 09/12/2024 3:37 PM EDT [facility] pH, Urine 7.0 5.0 - 8.0 pH LAB URINALYSIS - AUTOMATED METHOD 09/12/2024 3:37 PM EDT [facility] Leukocytes, Urine Trace(A) Negative LAB URINALYSIS - AUTOMATED METHOD 09/12/2024 3:37 PM [facility] Nitrite, Urine Negative Negative LAB URINALYSIS - AUTOMATED METHOD 09/12/2024 3:37 PM [facility] Protein, Urine 30(A) <=Trace mg/dL LAB URINALYSIS - AUTOMATED METHOD 09/12/2024 3:37 PM [facility] Glucose, Urine 100(A) Negative mg/dL LAB URINALYSIS - AUTOMATED METHOD 09/12/2024 3:37 PM [facility] Ketones, Urine Negative Negative mg/dL LAB URINALYSIS - AUTOMATED METHOD 09/12/2024 3:37 PM [facility] Urobilinogen, Urine 0.2 0.2 - 1.0 mg/dL LAB URINALYSIS - AUTOMATED METHOD 09/12/2024 3:37 PM [facility] Bilirubin, Urine Negative Negative LAB URINALYSIS - AUTOMATED METHOD 09/12/2024 3:37 PM [facility] Blood, Urine Negative Negative LAB URINALYSIS - AUTOMATED METHOD 09/12/2024 3:37 PM [facility] RBC, Urine 2.9 0 - 4 /HPF LAB URINALYSIS - AUTOMATED METHOD 09/12/2024 3:37 PM [facility] WBC, Urine 6.1(H) 0 - 4 /HPF LAB URINALYSIS - AUTOMATED METHOD 09/12/2024 3:37 PM [facility] Squamous Epithelial, Urine >100(H) 0 - 60 /LPF LAB URINALYSIS - AUTOMATED METHOD 09/12/2024 3:37 PM [facility] Bacteria, Urine Negative Negative /HPF LAB URINALYSIS - AUTOMATED METHOD 09/12/2024 3:37 PM [facility] Hyaline Casts, Urine 2.0 0 - 3 /LPF LAB URINALYSIS - AUTOMATED METHOD 09/12/2024 3:37 PM EDT [facility] Urine Urine specimen obtained by clean catch procedure / Unknown 09/12/2024 1:30 PM EDT 09/12/2024 3:25 PM EDT us Ada Goss NP LAB URINE ORDERABLES Fi nal Result Performing Organization Address [facility]/ZIP Co de Phone Number [facility] [address] [place] [address], [place] [phone] * Culture urine (09/12/2024 1:30 PM EDT) Culture, Urine 10,000-49,000 CFU/mL Mixed urogenital prieto, no uropathogens present. Suggest repeat specimen if clinically indicated. 09/13/2024 9:48 AM EDT [facility] Urine Urine specimen obtained by clean catch procedure / Unknown 09/12/2024 1:30 PM EDT 09/12/2024 3:25 PM EDT us Ada Goss NP LAB MICROBIOLOGY - GENE RAL ORDERABLES Final Result Performing Organization Address [facility] Co de Phone Number [facility] [address] [place] [address], [place] [phone] documented in this encounter Visit Diagnoses Diagnosis Hematuria, unspecified Urinary tract infection, site not specified documented in this encounter Care Teams Equipment Detailer Relationship Specialty Start Date End Date Petey Alicea DO [address] [place] [phone] PCP - General Internal Medicine 07/18/20 documented as of this encounter
--- OUTSIDE RECORDS SUMMARY | 2024-09-14 09:36 | XMS_ITS | Encounter Summary ---
Author Organization [facility] Address [address] [place] [address] Care Team Providers Care Founder Ceo & President Name Role Phone Petey Alicea Primary Care Provider [phone] Encounter Details Date Type Department Care Team (Late Contact Info) Description 05/11/2024 Lab Requisition [facility] - Main Lab 299 [facility] [place] [address] Maxx Aragon PA 100 [facility] 120 [place] [phone] Benign essential microscopic hematuria Social History Tobacco [...] 9:20 AM EDT Office Visit Gastroenterology - [place] 175 [facility] 175 [facility] 200 [place] [address] Nasreen Hyde NP 175 [facility] 200 [place], [place] [phone] 09/20/2024 4:20 PM EDT Office Visit Endocrinology [address] [phone] Jing Corley PA 444 [place] [address] 10/16/2024 9:30 AM EDT Office Visit Orthopedic Surgery - [place] 250 175 [facility] [address] [place] [phone] Cameron Gannon DPM 175 [facility] 250 [place] [address] 10/25/2024 3:30 PM EDT Office Visit [facility] - [facility] [address] 300 [facility] 154 [place] [phone] Baron Johnson MD 300 [facility] 154 [place] [address] documented as of this encounter Procedures Procedure Name Priority Date/Time Associated Diagnosis Comments AP OUTSIDE CONSULT Routine 05/04/2024 12 :00 AM EST Benign essential microscopic hematuria documented in this encounter Results * Anatomic pathology outside consult (05/04/2024 12:00 AM EST) Final Diagnosis Urine, Voided ([id number]): Negative for high grade urothelial carcinoma. 05/28/2024 9:02 AM [facility] Clinical Information [id number] Cytology w/Reflex UroVysion (AUC/SHGUC) 05/28/2024 9:02 AM [facility] Gross Description A. Urine, Voided, : [id number] Received 1 TP (CYTO) with Reflex Fish if Atypical/Susp 05/28/2024 9:02 AM [facility] Disclaimer Unless otherwise specified, all tissue is 10% NB formalin fixed and paraffin embedded. Technical pathology services provided by [facility] Urology at [address], [place] [address] (CLIA #[id number] tennille Demarco MD, Database Programmer Analyst) 05/28/2024 9:02 AM EST [facility] Tissue Urine specimen from urethra / Unknown 05/04/2024 05/11/2024 10:04 AM EST us Maxx MARTINEZ LAB PATHOLOGY ORDERAB LES Final Result [facility] 299 [place] [address], documented in this encounter Visit Diagnoses Diagnosis Benign essential microscopic hematuria documented in this encounter Care Teams Founder Ceo & President Relationship Specialty Start Date End Date Petey Alicea DO [address] [place] [phone] PCP - General Internal Medicine 07/18/20 documented as of this encounter
--- OUTSIDE RECORDS SUMMARY | 2024-09-14 09:36 | XMS_ITS | Encounter Summary ---
Author Organization [facility] Address [address] [place] [address] Care Team Providers Care Architectural Drafting Instructor Name Role Phone Petey Alicea Primary Care Provider [phone] Reason for Visit * Reason Onset Date Comments MEDICATION 09/11/2024 Encounter Details Date Type Department Care Team ([facility] st Contact Info) Description 09/11/2024 Telephone Endocrinology - [place] 444 [place] [address] Jing Corley PA 444 [place] [address] MEDICATION Social History Tobacco Use Types Packs/Day Years [...] Refills Last Filled Start Date End Date glucose 4 gram chewable tablet Take 1-2 tablets as need for low sugars 30 tablet 1 09/12/2024 documented in this encounter Progress Notes * Becky Cooley - 09/11/2024 4:09 PM EDT Refills not on Current Medication List Patient would like script to be: E-PRESCRIBED/FAXED TO PHARMACY [place] FOR NEXT DAY Not on Med List PREFERRED PHARMACY: [facility] [address] [place], [place] - 155 [facility] 155 [facility] [address] Med name: Pt detention calling to ask if it is appropriate to prescribe pt Glucose gel ? Dosage: N/A # of tablets: N/A Instructions: N/A Patient wants: 30-day supply Is this a mail order prescription request?: no Did you check the Pharmacy information above?: yes Patients current insurance carrier is: Payor: MEDICARE / Plan: MEDICARE PART A & B / Product Type: Medicare / Insurance ID #: @[email or web address]@ documented in this encounter Plan of Treatment Upcoming Encounters Date Type Department Care Team ([facility] st Contact Info) Description 09/17/2024 9:20 AM EDT Office Visit Gastroenterology - [place] [address] [phone] Nasreen Hyde NP [address] [address] 09/20/2024 4:20 PM EDT Office Visit Endocrinology - [address] [phone] Jing Corley PA 444 [place] [address] 10/16/2024 9:30 AM EDT Office Visit Orthopedic Surgery - [place] 250 175 [facility] 250 [place] [phone] Cameron Gannon DPM [address] [address] 10/25/2024 3:30 PM EDT Office Visit [facility]iology [facility] - [facility] [address] 300 [facility] 154 [place] [phone] Baron Johnson MD 300 [facility] 154 [place] [address] documented as of this encounter Visit Diagnoses Not on filedocumented in this encounter Care Teams Architectural Drafting Instructor Relationship Specialty Start Date End Date Petey Alicea DO [address] [place] [phone] PCP - General Internal Medicine 07/18/20 documented as of this encounter
== END 2024-09-14 10:14 | disposition home or self-care (01) ==
LOC: HO.HSMS 09:24
PROVIDERS: PCP Internal Medicine; Visit Provider Physician Assistant Medical
DX: I60.9 Nontraumatic subarachnoid hemorrhage, unspecified (principal); R29.818 Other symptoms and signs involving the nervous system
CPT/HCPCS: 99214

== ENCOUNTER → 2024-09-14 09:23 | Outpatient (BNVA) | payer MEDICARE, MEDICAID, SELFPAY | PROVIDERS: PCP Internal Medicine; Visit Provider Physician Assistant Medical | DX: I60.9 Nontraumatic subarachnoid hemorrhage, unspecified (principal); R29.818 Other symptoms and signs involving the nervous system | CPT/HCPCS: 99212 ==